=== PATIENT | female | born 1975 | race Caucasian/White ===

== ENCOUNTER 2023-12-12 06:37 | Outpatient (OUT) | payer BC, SELFPAY ==
--- NOTE | 2023-12-12 06:42 | MR_ITS ---
[address] [address] Patient Name: OSEAS DE LEON MRN: [id number] date: 1975 Sex: F Assigned Patient Location: MRI Current Patient Location: MRI Accession/Order Number: [id number] Exam Date: 12/12/2023 06:55 Report Date: 12/12/2023 07:46 At the request of: KORINA ROBLES Procedure: MR cervical spine wo con EXAMINATION: MR cervical spine wo con HISTORY: Cervical Dystonia G24.3, Cervical Radiculopathy Radiculopath COMPARISON: No relevant comparison available. TECHNIQUE: A variety of imaging planes and parameters were utilized for visualization of suspected pathology. FINDINGS: CRANIOCERVICAL AREA: Normal foramen magnum with no Chiari malformation. PARASPINAL AREA: Normal with no visible mass. BONES: Normal alignment with no acute fracture or spondylolisthesis. Signal dropout C5-C6 from anterior metallic fusion hardware CORD: There is atrophy of the cervical cord at C5-C6 with 0.8 cm area of decreased T1 increased T2 and STIR signal within the central cord. CERVICAL DISC LEVELS: C2-C3: Early degenerative disc disease is present without focal protrusion or neural impingement. C3-C4: Moderate disc space narrowing and disc desiccation. Moderate diffuse disc/osteophyte complex. Bilateral facet osteoarthropathy. No central canal stenosis. Mild bilateral foraminal stenosis C4-C5: Moderate disc space narrowing and disc desiccation. Mild diffuse disc/osteophyte complex and facet osteoarthropathy. Narrowing the central canal to 7.2 mm in anterior posterior dimension. No new right, mild left foraminal stenosis C5-C6: Anterior fusion with no disc bulge or herniation. No central or foraminal stenosis. Atrophy of the cord with central signal abnormality C6-C7: Disc collapse. Moderate diffuse disc/osteophyte complex narrowing the central canal to 7.8 mm in AP dimension. Moderate bilateral foraminal stenosis C7-T1:. Moderate disc space narrowing and disc desiccation. Moderate diffuse disc/osteophyte complex. No central canal stenosis or left foraminal stenosis. 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 Electronically authenticated by: WESLY COBIAN Date: 12/12/2023 07:46
== END 2023-12-12 06:38 | disposition home or self-care (01) ==
LOC: MRI 06:37
PROVIDERS: PCP Family Medicine; Visit Provider Psychiatry & Neurology Neurology
DX: G24.3 Spasmodic torticollis (principal); M54.12 Radiculopathy, cervical region
CPT/HCPCS: 72141

== ENCOUNTER 2024-09-30 10:58 | Outpatient (OUT) | payer BC, MEDICARE, SELFPAY ==
--- NOTE | 2024-09-30 11:00 | MM_ITS ---
Patient Name: OSEAS DE LEON MR#: [id number] : 1975 Exam Date: 09/30/2024 Ordering Doctor: DR MARCELLUS CASTILLO RADIOLOGY REPORT PROCEDURE: MM TOMOSYNTHESIS SCREENING BI COMPARISON: MG MAMM SCREEN 3D SCOTT CAD, 10/30/2022. MG MAMM SCREEN 3D SCOTT CAD, 10/29/2021. MG MAMM SCREEN SCOTT W CAD, 10/29/2019. MG MAMM SCOTT SCRN W CAD DIG, 06/22/2015. INDICATIONS: Screening Calculator Name NCI Breast Cancer Risk Assessment Tool 5 Year Breast Cancer Risk 0.70% Lifetime Breast Cancer Risk 6.60% Personal Breast Cancer No Personal Ovarian Cancer No Treatments thyroidectomy Family Cancers None LOCATION: [facility] BREAST COMPOSITION: The breasts are heterogeneously dense,which may obscure small masses. FINDINGS: DIAGNOSTIC CATEGORY 1--NEGATIVE. RIGHT BREAST: No significant suspicious finding. No significant change has occurred. LEFT BREAST: No significant suspicious finding. No significant change has occurred. RECOMMENDATIONS: ROUTINE MAMMOGRAM AND CLINICAL EVALUATION IN 12 MONTHS. PLEASE NOTE: A NORMAL MAMMOGRAM DOES NOT EXCLUDE THE POSSIBILITY OF BREAST CANCER. A CLINICALLY SUSPICIOUS PALPABLE LUMP SHOULD BE BIOPSIED. Dictated by: Phani Hernandez M.D. on 10/01/2024 at 09:30 Approved by: Phani Hernandez M.D. on 10/01/2024 at 09:33
--- OUTSIDE RECORDS SUMMARY | 2024-09-30 11:19 | XMS_ITS | CCD ---
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 Name Role Phone Gurmeet Sahu MD Primary Care Provider [phone] Ashkan Brown Unavailable Mo Trevino Unavailable Gurmeet Sahu Unavailable Gurmeet Sahu MD Primary Care Provider [phone] JONATHAN, DR MARCELLUS Katz Admitting Unavailable JONATHAN, DR MARCELLUS Katz Attending Unavailable LUIS ALBERTO, DR CARREON Primary Care Unavailable BLAZE, DR MARKUS Wheeler Consulting Unavailable JONATHAN, DR MARCELLUS Katz Consulting Unavailable MD Gurmeet Sahu Primary Care Provider MD Ashkan Brown Attending Provider Naya See Unavailable MD Naya See Attending Provider Gurmeet Sahu MD Primary Care Provider MD Gurmeet Shau Primary Care Provider MD Ashkan Brown Attending Provider [phone] Gurmeet Sahu MD Primary Care Provider [phone] MD Gurmeet Sahu Primary Care Provider MD Ashkan Brown Attending Provider MD Gurmeet Sahu Primary Care Provider [phone] GARIMA Vance Attending Provider Nyasia Vance Unavailable MD Gurmeet Sahu Primary Care Provider GARIMA Vance Attending Provider IRISH Farooq Attending Provider Yenifer Farooq Admitting Unavailab Yenifer Aggarwal Attending Unavailab le Gurmeet Sahu Primary Care Unavailable Naya See Admitting Unavailable Naya See R Attending Unavailable Gurmeet Sahu Primary Care Unavailable Ashkan Brown Admitting Unavailable Ashkan Brown Attending Unavailable Gurmeet Sahu Primary Care Unavailable Ashkan Brown Admitting Unavailable Ashkan Brown Attending Unavailable Gurmeet Sahu Primary Care Unavailable Ashkan Brown Attending Unavailable Gurmeet Sahu Primary Care Unavailable Ashkan Brown Admitting Unavailable Gurmeet Sahu Primary Care Unavailable Nyasia Vance Admitting Unavailable Nyasia Vance Attending Unavailable Gurmeet Sahu MD Primary Care Provider GURMEET SAHU Referring Unavailable GURMEET SAHU Primary Care Unavailable BABAK KNIGHT JR Attending Unavailabl BABAK Nogueira JR Referring Unavailabl GURMEET Jacobsen Primary Care Unavailable BABAK KNIGHT JR Admitting Unavailabl BABAK Nogueira JR Attending Unavailabl e GURMEET SAHU Primary Care Unavailable WESLY MITCHELL Attending Unavailable GURMEET SAHU Primary Care Unavailable GURMEET SAHU Primary Care Unavailab GURMEET Buitrago Primary Care Unavailab Kristi Albert Attending Unavailable MARCELLUS CID Referring Unavailable GURMEET SAHU Primary Care Unavailable Gurmeet Sahu MD Unavailable [phone] Gurmeet Sahu MD Primary Care Provider [phone] Marcellus Cid MD Unavailable Milton Garcia DO Unavailable [phone] Yenifer Farooq NP Unavailable Gurmeet Sahu MD Unavailable GURMEET SAHU Attending Unavailable KORINA RIBEIRO Attending Unavailable GURMEET SAHU Attending Unavailable YENIFER FAROOQ Attending Unavailab YENIFER Aggarwal Attending Unavailab le GURMEET SAHU Attending Unavailable GURMEET SAHU Attending Unavailable YENIFER FAROOQ Attending Unavailab Gaviota JR., BABAK Saldana Attending Unavaila ble GURMEET SAHU Attending Unavailable JOURDAN HERR Attending Unavailable YAA SOLIZ Attending Unavailable HERR, JOURDAN Duvall Referring Unavailable LANI KWON Attending Unavailable HERR, JOURDAN Duvall Referring Unavailable BRINK, ROXANNE Attending Unavailable HERR, JOURDAN Duvall Referring Unavailable BRINK, ROXANNE Attending Unavailable HERR, JOURDAN Duvall Referring Unavailable KELBLEYLANI Attending Unavailable HERR, JOURDAN Duvall Referring Unavailable BRINK, ROXANNE Attending Unavailable HERR, JOURDAN Duvall Referring Unavailable BRINK, ROXANNE Attending Unavailable HERR, JOURDAN Duvall Referring Unavailable YENIFER FAROOQ Attending Unavailab Gaviota JR., BABAK Saldana Attending Unavaila andriy KNIGHT JR., BABAK Saldana Referring Unavaila ble JOURDAN HERR Attending Unavailable MAGDALENE LESTER Attending Unavailable GURMEET SAHU Attending Unavailable MAIA, JOURDAN Duvall Attending Unavailable GURMEET SAHU Attending Unavailable ALICIA CISNEROS Attending Unavailable HERR, JOURDAN Duvall Referring Unavailable ALICIA CISNEROS Attending Unavailable HERR, JOURDAN Duvall Referring Unavailable HERR, JOURDAN Duvall Attending Unavailable YENIFER FAROOQ Attending Unavailab le JOURDAN HERR Attending Unavailable ALICIA CISNEROS Attending Unavailable HERR, JOURDAN Duvall Referring Unavailable ALICIA CISNEROS Attending Unavailable HERR, JOURDAN Duvall Referring Unavailable CISNEROSALICAI Attending Unavailable HERR, JOURDAN Duvall Referring Unavailable JUN RIVERA Attending Unavailable HERR, JOURDAN Duvall Referring Unavailable JUN RIVERA Attending Unavailable HERR, JOURDAN Duvall Referring Unavailable ALICIA CISNEROS Attending Unavailable HERR, JOURDAN Duvall Referring Unavailable LANI KWON Attending Unavailable HERR, JOURDAN Duvall Referring Unavailable MILTON GARCIA Attending Unavailable MILTON GARCIA Referring Unavailable GURMEET SAHU Attending Unavailable JOURDAN HERR Attending Unavailable Gurmeet Sahu MD Unavailable Gurmeet Sahu MD Primary Care Provider Gurmeet Sahu MD Unavailable [phone] Medications Current Medications Medication Drug Class(es) Dates Sig (Normalized) Sig (Original) acetaminophen 325 mg / butalbital 50 mg / caffeine 40 mg oral tablet (20 sources) Barbiturate, Central Nervous System Stimulant, Methylxanthine Start: 01-04-2019 take 1 tablet by mouth every four hours as needed for headache butalbital-acetam inophen-caffeine (FIORICET, ESGIC) 50-325-40 MG per tablet Indications: Tension-type headache, not intractable, unspecified chronicity pattern Take 1 tablet by mouth every 4 hours as needed for Headaches 50 tablet 5 01/04/2019 Active Butalbital-APAP- Caffeine 50-300-40 MG TAKE ONE CAPSULE BY MOUTH EVERY 4 HOURS NEEDED FOR 90 DAYS Oral for 23 Active acetaminophen 325 mg / oxyCODONE hydrochloride 5 mg oral tablet (1 source) Opioid Agonist Start: 02-22-2019 oxyCODONE-acetaminophen (PERCOCET) 5-325 MG per tablet amitriptyline hydrochloride 25 mg oral tablet (1 source) Tricyclic Antidepressant take 1 tablet by mouth once daily amitriptyline (ELAVIL) 25 MG tablet Take 25 mg by mouth nightly 0 Active Ascorbic Acid (2 sources) Vitamin C End: 05-15-2022 ascorbic acid (VITAMIN C ORAL) Take by mouth. 0 05/15/2022 Discontinued ascorbic acid (V ITAMIN C ORAL) Take by mouth. 0 Active Comment on above: Take by mouth. baclofen 10 mg oral tablet (20 sources) gamma-Aminobutyric Acid-ergic Agonist Start: 015 baclofen (LIORESAL) 10 MG tablet 0 03/23/2015 Active Comment on above: Take 10 mg by mouth as needed. benzonatate 100 mg oral capsule (15 sources) Non-narcotic Antitussive take 1 capsule by mouth three times daily as needed for cough benzonatate (Tessalon) 100 MG capsule Take 100 mg by mouth 3 (three) times a day as needed for cough. Active biotin 10 mg oral tablet (6 sources) take 1 tablet by mouth every twenty-four hours Biotin 10 MG 1 tablet Orally Once a day Active Cannabinoids (medical cannabis) (15 sources) Cannabinoids (me dical cannabis) Take 1 each by mouth Active cyclobenzaprine hydrochloride 5 mg oral tablet (1 source) Muscle Relaxant Start: 019 cyclobenzaprine (FLEXERIL) 5 MG tablet esomeprazole 20 mg delayed release oral capsule (18 sources) Proton Pump Inhibitor Start: 024 Esomeprazole Magnesium Active 20 MG PO March 02, 2024 12:00am Start: 06-17-2023 End: 05-31-2025 take 1 capsule by mouth before mealtime esomeprazole (NexIUM) [address] capsule Indications: 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 Take before meals. Do not open capsule.. 90 capsule 3 05/31/2024 05/31/2025 Active ferrous sulfate 325 mg oral tablet (1 source) take 1 tablet by mouth once daily at breakfast ferrous sulfate 325 (65 Fe) MG tablet Take 325 mg by mouth daily (with breakfast) 0 Active lactulose 667 mg/ml oral solution (2 sources) Osmotic Laxative Start: 04-12-20 End: 05-15-20 lactulose (DUPHALAC, CONSTULOSE) 10 gram/15 mL solution levothyroxine sodium 0.05 mg oral tablet (20 sources) l-Thyroxine Start: 09-09-20 End: 12-08-19 take 0.5 tablet by mouth in the morning levothyroxine (Synthroid) 50 MCG tablet Indications: Postsurgical hypothyroidism (CMS/HCC) Take 0.5 tablets (25 mcg) by mouth in the morning and 0.5 tablets (25 mcg) in the evening. Take before meals. 90 tablet 09/09/2024 12/08/2024 Active Start: 06-17-2022 SYNTHROID 75 M CG tablet Start: 04-12-2020 End: 05-15-2023 SYNTHROID 75 mcg tablet 1/2 tab daily 0 04/12/2020 05/15/2023 Discontinued take 0.5 tablet by m outh once daily in the morning Synthroid 75 MCG 1/2 tablet in the morning on an empty stomach Oral Once a day for 90 Active Comment on above: 1/2 tab daily liothyronine sodium 0.005 mg oral tablet (18 sources) l-Triiodothyronine Start: 09-09-2024 liothyronine (Cytomel) 5 MCG tablet Indications: Euthyroid sick syndrome Take 1.5 tablet in AM and 1.5 tablet in PM on an empty stomach. RADHA; Sigma or [employer] brands only 270 tablet 09/09/2024 Active Start: 03-03-2024 End: 09-09-2024 liothyronine (Cytomel) 5 MCG tablet Indications: Euthyroid sick syndrome Take 1 tablet in AM and 1 tablet in PM on an empty stomach. RADHA; Sigma or [employer] brands only 60 tablet 09/02/2024 09/09/2024 Discontinued (Reorder) losartan potassium 50 mg oral tablet (20 sources) Angiotensin 2 Receptor Emily Start: 04-26-2021 losartan (COZAAR) 50 mg tablet once daily. 0 04/26/2021 Active Comment on above: once daily. methocarbamol 750 mg oral tablet (15 sources) Muscle Relaxant Start: 06-18-2022 take 1 tablet by mouth four times daily as needed methocarbamol (ROBAXIN) 750 MG tablet TAKE 1 TABLET BY MOUTH FOUR TIMES A DAY NEEDED 0 06/18/2022 Active take 1 tablet by morgan th every four hours Methocarbamol 750 MG 1 tablet Orally loc ry 4 hrs Not-Taking/PRN naproxen 375 mg oral tablet (20 sources) Nonsteroidal Anti-inflammatory Drug Start: 05-25-2024 End: 11-21-2024 take 1 tablet by mouth in the morning naproxen (Naprosyn) 375 MG tablet Indications: Chronic pain syndrome Take 1 tablet (375 mg) by mouth in the morning and 1 tablet (375 mg) in the evening. Take with meals. 180 tablet 1 05/25/2024 11/21/2024 Active Start: 03-02-2024 take 375 mg by mouth twice alysa ly Naproxen Active 375 MG PO Twice daily March 02, 2024 12:00am Start: 08-07-2016 naproxen (NAPR OSYN) 375 MG tablet 2 times daily (with meals) 0 08/07/2016 Active NAPROXEN SODIUM (ALEVE ORAL) Take by mouth as needed. 0 Active Comment on above: Take by mouth as nee ded. omeprazole 20 mg delayed release oral capsule (20 sources) Proton Pump Inhibitor take 1 capsule by mouth once daily omeprazole (PRILOSEC) 20 mg capsule Take 20 mg by mouth once daily. 0 Active Comment on above: Take 20 mg by mouth once daily. 12 hr orphenadrine citrate 100 mg extended release oral tablet (20 sources) Muscle Relaxant Start: take 100 mg by mouth every twelve hours Orphenadrine Citrate Active 100 MG PO Every 12 hours March 02, 2024 12:00am Start: 12-17-2022 End: 11-21-2024 take 1 tablet by mouth twice daily as needed for muscle spasms orphenadrine (Norflex) 100 MG 12 hr tablet Indications: Chronic pain syndrome Take 1 tablet (100 mg) by mouth 2 (two) times a day as needed for muscle spasms 180 tablet 1 05/25/2024 11/21/2024 Active phentermine hydrochloride 37.5 mg oral tablet (15 sources) Sympathomimetic Amine Anorectic Start: 03-02-2024 take 18.75 mg by mouth once daily in the morning Phentermine Active 18.75 MG PO Every morning March 02, 2024 12:00am Start: 07-17-2022 End: 08-16-2022 take 1 tablet by mouth once daily before breakfast phentermine (ADIPEX-P) 37.5 MG tablet Indications: Obesity (BMI 35.0-39.9 without comorbidity) Take 1 tablet by mouth every morning (before breakfast) for 30 days. 30 tablet 0 07/17/2022 08/16/2022 Active Start: 05-10-2021 End: 06-09-2021 take 1 tablet by mouth once daily before breakfast phentermine (ADIPEX-P) 37.5 MG tablet Indications: Obesity, Class III, BMI 40-49.9 (morbid obesity) (HCC) Take 1 tablet by mouth every morning (before breakfast) for 30 days. 30 tablet 0 05/10/2021 06/09/2021 Active pregabalin 150 mg oral capsu le (20 sources) Start: 04-16-2015 LYRICA 150 MG CAPS 2 times daily. 2 tabs. 0 04/16/2015 Active take 1 capsule by mo ut every twelve hours Lyrica 50 MG 1 capsule Orally Twice a day Not-Taking/PRN End: 05-15-2022 take 1 capsule by mouth twice daily pregabalin (LYRICA) 150 mg capsule Indications: History of thyroid cancer Take 150 mg by mouth twice daily. 0 05/15/2022 Discontinued take 1 capsule by mo uth every twelve hours Pregabalin 100 MG 1 capsule Orally Twice a day for 90 Active take 1 capsule by mo uth every twelve hours Pregabalin 200 MG 1 capsule Orally Twice a day for 90 Active Comment on above: Take 150 mg by mouth twice daily. primidone 50 mg oral tablet (20 sources) Anti-epileptic Agent Start: 07-29-2024 End: 07-29-2025 take 1 tablet by mouth at bedtime primidone (Mysoline) 50 MG tablet Indications: Myoclonus Take 1 tablet (50 mg) by mouth at bedtime 90 tablet 3 07/29/2024 07/29/2025 Active Start: 03-02-2024 take 25 mg by mouth once daily at bedtime Primidone Active 25 MG PO Daily at bedtime March 02, 2024 12:00am primidone (MYSOL INE) 50 mg tablet Take 12.5 mg by mouth. 0 Active take 1 tablet by morgan th every twenty-four hours Primidone 50 MG 1 tablet Orally Once a day Active 24 hr propranolol hydrochloride 60 mg extended release oral capsule (16 sources) beta-Adrenergic Emily Start: 08-05-2024 End: 11-03-2024 take 1 capsule by mouth every twenty-four hours at bedtime propranolol LA (Inderal LA) 60 MG 24 hr capsule Indications: Hypertension, unspecified type (CMS/HCC) , Intractable chronic migraine without aura and without status migrainosus (CMS/HCC) TAKE 1 CAPSULE BY MOUTH AT BEDTIME. DO NOT CRUSH, CHEW, OR SPLIT. 90 capsule 1 08/30/2024 Active pseudoephedrine hydrochloride 30 mg oral tablet (15 sources) alpha-Adrenergic Agonist take 1 tablet by mouth every six hours pseudoephedrine (SudoGest) 30 MG tablet Take 30 mg by mouth every 6 (six) hours. Active rimegepant 75 mg disintegrating oral tablet (17 sources) Start: 01-28-2024 take 1 tablet by mouth every twenty-four hours as needed Nurtec 75 MG tablet dispersible Take 75 mg by mouth Daily as needed (Migraine) 01/28/2024 Active temazepam 15 mg oral capsule (16 sources) Benzodiazepine Start: 07-29-2024 End: 10-27-2024 temazepam (Restoril) 15 MG capsule Indications: Insomnia due to medical condition Take 1 capsule (15 mg) by mouth as needed at bedtime for sleep 30 capsule 2 07/29/2024 10/27/2024 Active Start: 04-28-2024 End: 07-27-2024 temazepam (RESTORIL) 15 mg T dwain 15 mg by mouth. 0 04/28/2024 07/27/2024 Active Thyroid (Pork) (1 source) Start: 03-02-2024 Thyroid (Pork) Active 15 MG PO March 02, 2024 12:00am tiZANidine 4 mg oral tablet (16 sources) Central alpha-2 Adrenergic Agonist Start: 07-29-2024 End: 07-29-2025 take 0.5 tablet by mouth in the morning, then take 1 tablet by mouth at bedtime tiZANidine (Zanaflex) 4 MG tablet Indications: Intractable chronic migraine without aura and without status migrainosus (CMS/HCC) , Cervical paraspinal muscle spasm Take 0.5 tablets (2 mg) by mouth in the morning and at noon AND 1 tablet (4 mg) at bedtime. 180 tablet 3 07/29/2024 07/29/2025 Active Start: 03-02-2024 take 8 mg by mouth o nce daily at bedtime Tizanidine Active 8 MG PO Daily at bedtime March 02, 2024 12:00am topiramate 25 mg oral tablet (17 sources) Start: 07-29-2024 End: 07-29-2025 take 2 tablets by mouth at bedtime topiramate (Topamax) 25 MG tablet Indications: Intractable chronic migraine without aura and without status migrainosus (CMS/HCC) Take 2 tablets (50 mg) by mouth at bedtime 180 tablet 3 07/29/2024 07/29/2025 Active Start: 03-02-2024 take 50 mg by mouth once daily at bedtime Topiramate Active 50 MG PO Daily at bedtime March 02, 2024 12:00am topiramate (TOPA MAX) 25 mg capsule Take 25 mg by mouth. 0 Active traMADol hydrochloride 50 mg oral tablet (15 sources) Opioid Agonist Start: 03-03-2024 take 1 tablet by mouth once traMADol (Ultram) 50 MG tablet TAKE 1 TABLET (50 MG) BY MOUTH EVERY 12 (TWELVE) HOURS IF NEEDED FOR SEVERE PAIN FOR UP TO 14 DAYS 03/03/2024 Active Completed/Discontinued Medications Medication Drug Class(es) Dates Sig (Normalized) Sig (Original) thyroid (chcf) 30 mg oral tablet (20 sources) Start: 05-31-2024 End: 11-27-2024 take 1 tablet by mouth in the morning thyroid (Majestic Thyroid) 30 MG tablet Indications: Euthyroid sick syndrome , Postsurgical hypothyroidism (CMS/HCC) Take 1 tablet (30 mg) by mouth in the morning and 1 tablet (30 mg) in the evening. Take before meals. 180 tablet 1 05/31/2024 09/09/2024 Discontinued (Dose adjustment) Start: 04-12-2019 take 2 tablets by mo uth twice daily, then take 3 tablets by mouth once in the morning, then take 2 tablets by mouth once at bedtime ARMOUR THYROID 15 mg tablet Take 30 mg by mouth two times a day. 45mg q a.m. and 30mg q hs 0 04/12/2019 Active Start: 04-12-2019 ARMOUR THYROID 15 mg tablet Take 45 mg by mouth as directed. 45mg q a.m. and 30mg q hs 0 04/12/2019 Active Start: 04-28-2018 ARMOUR THYROID 90 MG tablet Comment on above: Take 45 mg by mouth twice daily. Take 45 mg by mouth as directed. 45mg q a.m. and 30mg q hs triamcinolone acetonide 40 mg/ml injectable suspension (9 sources) Corticosteroid Start: 09-03-2023 Kenalog-40 Oct, 40 mg Problems Active Problems Problem Classification Problem Date Documented Date Episodic/Chronic Cancer of thyroid (6 sources) Malignant tumor of thyroid gland; Translations: [Malignant neoplasm of thyroid gland] Onset: 08-16-2014 08-16-2014 Chronic Complications of surgical procedures or medical care (17 sources) Postoperative hypothyroidism; Translations: [Postprocedural hypothyroidism] Onset: 06-03-2023 06-03-2023 Chronic Esophageal disorders (15 sources) Laryngopharyngeal reflux; Translations: [Gastro-esophageal reflux disease without esophagitis] Onset: 06-03-2023 06-03-2023 Chronic Essential hypertension (17 sources) Essential (primary) hypertension; Translations: [Essential hypertension] Onset: 06-03-2023 06-03-2023 Chronic Headache; including migraine (16 sources) Migraine; Translations: [Migraine, unspecified, not intractable, without status migrainosus] Onset: 06-03-2023 10-06-2023 Chronic Malaise and fatigue (17 sources) Fatigue; Translations: [Chronic fatigue, unspecified] Onset: 06-03-2023 06-03-2023 Chronic Osteoarthritis (20 sources) Localized, primary osteoarthritis of the pelvic region and thigh; Translations: [Unilateral primary osteoarthritis, right hip] Onset: 06-03-2023 Chronic Other connective tissue disease (20 sources) Artificial knee joint present; Translations: [Presence of right artificial knee joint] Onset: 06-03-2023 06-03-2023 Chronic Other connective tissue disease (20 sources) Trochanteric bursitis of left hip; Translations: [Trochanteric bursitis, left hip] Episodic Other connective tissue disease (20 sources) Trochanteric bursitis; Translations: [Trochanteric bursitis, right hip] Episodic Other connective tissue disease (6 sources) Trochanteric bursitis, right hip Onset: 10-30-2021 Resolved: 03-11-2022 Episodic Other connective tissue disease (4 sources) Trochanteric bursitis of right hip; Translations: [Trochanteric bursitis, right hip] Episodic Other connective tissue disease (1 source) Arthrodesis status; Translations: [Arthrodesis status] 03-02-2024 Episodic Other connective tissue disease (1 source) Other muscle spasm; Translations: [Other muscle spasm] Onset: 02-20-2024 Episodic Other connective tissue disease (4 sources) Bicipital tendinitis, right shoulder; Translations: [Bicipital tenosynovitis] 08-25-2024 Episodic Other hereditary and degenerative nervous system conditions (16 sources) Myoclonus; Translations: [Myoclonus] Onset: 08-27-2023 08-27-2023 Chronic Other hereditary and degenerative nervous system conditions (1 source) Myoclonic dystonia; 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 Other hereditary and degenerative nervous system conditions (1 source) Other dystonia Chronic Other hereditary and degenerative nervous system conditions (1 source) Myoclonus Chronic Other nervous system disorders (20 sources) Chronic pain; Translations: [Other chronic pain] Chronic Other nervous system disorders (20 sources) Cervical myelopathy; Translations: [Disease of spinal cord, unspecified] Onset: 05-11-2024 03-02-2024 Chronic Other nervous system disorders (15 sources) Other chronic pain; Translations: [Other chronic pain] Onset: 11-06-2021 Resolved: 06-13-2022 Chronic Other nervous system disorders (3 sources) Disease of spinal cord, unspecified; Translations: [Cervical spondylosis with myelopathy] Onset: 10-30-2021 Resolved: 10-30-2021 Chronic Other nervous system disorders (13 sources) Lesion of ulnar nerve, right upper limb; Translations: [Cubital tunnel syndrome on right] Chronic Other nervous system disorders (1 source) Other chronic pain; Translations: [Other chronic pain] Onset: 08-06-2023 Chronic Other nervous system disorders (15 sources) Chronic pain syndrome; Translations: [Chronic pain syndrome] Onset: 06-03-2023 06-03-2023 Chronic Other nervous system disorders (15 sources) Neuropathy of upper limb; Translations: [Unspecified mononeuropathy of unspecified upper limb] Onset: 06-03-2023 06-03-2023 Chronic Other nervous system disorders (15 sources) Left leg peripheral neuropathy; Translations: [Unspecified mononeuropathy of left lower limb] Onset: 06-03-2023 06-03-2023 Chronic Other nervous system disorders (7 sources) Abnormal involuntary movement; Translations: [Tremor, unspecified] Episodic Other nervous system disorders (2 sources) Tremor, unspecified Episodic Other non-traumatic joint disorders (3 sources) Pain in right elbow Episodic Other non-traumatic joint disorders (12 sources) Pain in right hip joint; Translations: [Pain in right hip] Episodic Other non-traumatic joint disorders (2 sources) Pain in right hip Episodic Other non-traumatic joint disorders (8 sources) Pain in right shoulder; Translations: [Pain in joint, shoulder region] Onset: 05-18-2024 Episodic Other non-traumatic joint disorders (2 sources) Pain in left shoulder; Translations: [Pain in joint, shoulder region] Episodic Other non-traumatic joint disorders (1 source) Pain in unspecified shoulder Episodic Other nutritional; endocrine; and metabolic disorders (17 sources) Obesity caused by energy imbalance; Translations: [Other obesity due to excess calories] Onset: 06-03-2023 06-03-2023 Chronic Other upper respiratory disease (1 source) Paralysis of vocal cords and larynx, bilateral Onset: 10-30-2021 Resolved: 10-30-2021 Chronic Other upper respiratory disease (15 sources) Complete bilateral paralysis of vocal cords; Translations: [Paralysis of vocal cords and larynx, bilateral] Onset: 07-11-2023 07-11-2023 Chronic Other upper respiratory infections (15 sources) Recurrent sinusitis; Translations: [Chronic sinusitis, unspecified] Onset: 06-03-2023 06-03-2023 Chronic Residual codes; unclassified (1 source) Obstructive sleep apnea (adult) (pediatric); Translations: [Obstructive sleep apnea (adult) (pediatric)] Onset: 05-11-2024 Chronic Residual codes; unclassified (15 sources) Dependence on enabling machine or device; Translations: [Dependence on other enabling machines and devices] Onset: 06-03-2023 06-03-2023 Chronic Residual codes; unclassified (15 sources) Obstructive sleep apnea syndrome; Translations: [Obstructive sleep apnea (adult) (pediatric)] Onset: 06-03-2023 06-03-2023 Chronic Residual codes; unclassified (15 sources) Insomnia co-occurrent and due to medical condition; Translations: [Insomnia due to medical condition] Onset: 04-28-2024 04-28-2024 Chronic Residual codes; unclassified (1 source) Other specified personal risk factors, not elsewhere classified; Translations: [Other specified personal risk factors, not elsewhere classified] Onset: 07-21-2024 Episodic Residual codes; unclassified (5 sources) History of arthroscopic procedure on shoulder; Translations: [Other specified postprocedural states] 08-25-2024 Episodic Spondylosis; intervertebral disc disorders; other back problems (20 sources) Degeneration of lumbar intervertebral disc; Translations: [Other intervertebral disc degeneration, lumbar region] Onset: 10-30-2021 Resolved: 06-13-2022 Chronic Thyroid disorders (4 sources) Central hypothyroidism; Translations: [Other specified hypothyroidism] Onset: 09-21-2024 09-21-2024 Chronic Thyroid disorders (17 sources) Sick-euthyroid syndrome; Translations: [Sick-euthyroid syndrome] Onset: 06-03-2023 06-03-2023 Episodic Unclassified (1 source) Unilateral primary osteoarthritis, right hip; Translations: [Unilateral primary osteoarthritis, right hip] Onset: 10-01-2023 Unclassified (1 source) Pain in right elbow; Translations: [Pain in right elbow] Onset: 03-18-2023 Unclassified (1 source) right shoulder internal derangement Onset: 05-18-2024 Past or Other Problems Problem Classification Problem Date Documented Da te Episodic/Chronic Cancer of thyroid (20 sources) History of malignant neoplasm of thyroid; Translations: [Personal history of malignant neoplasm of thyroid] Onset: 11-30-2014 Episodic Complications of surgical procedures or medical care (20 sources) Difficult intubation; Translations: [Failed or difficult intubation, initial encounter] Onset: 06-03-2023 Resolved: 12-01-2023 06-03-2023 Episodic Mood disorders (15 sources) Mood disorders Onset: 01-27-2024 01-27-2024 Other aftercare (15 sources) Polypharmacy ; Translations: [Other correction (current) drug therapy] Onset: 04-26-2021 06-16-2023 Episodic Other circulatory disease (15 sources) Orthostatic hypotension; Translations: [Orthostatic hypotension] Onset: 06-03-2023 06-03-2023 Episodic Other connective tissue disease (19 sources) History of total knee arthroplasty; Translations: [Presence of left artificial knee joint] Onset: 06-03-2023 Resolved: 02-06-2024 02-06-2024 Chronic Other connective tissue disease (3 sources) Trochanteric bursitis, left hip Onset: 11-06-2021 Resolved: 03-11-2022 Episodic Other connective tissue disease (16 sources) History of cervical spine fusion; Translations: [Arthrodesis status] Onset: 05-11-2024 03-02-2024 Episodic Other connective tissue disease (15 sources) Lateral epicondylitis of right humerus; Translations: [Lateral epicondylitis, right elbow] Onset: 06-03-2023 06-03-2023 Episodic Other connective tissue disease (15 sources) Medial epicondylitis of right humerus; Translations: [Medial epicondylitis, right elbow] Onset: 06-03-2023 06-03-2023 Episodic Other connective tissue disease (15 sources) Spasm of cervical paraspinous muscle; Translations: [Other muscle spasm] Onset: 01-23-2024 01-23-2024 Episodic Other gastrointestinal disorders (15 sources) Constipation; Translations: [Constipation, unspecified] Onset: 06-03-2023 06-03-2023 Episodic Other lower respiratory disease (15 sources) Dyspnea; Translations: [Dyspnea, unspecified] Onset: 06-03-2023 Resolved: 12-01-2023 12-01-2023 Episodic Other nervous system disorders (15 sources) Numbness; Translations: [Anesthesia of skin] Onset: 01-23-2024 Resolved: 01-27-2024 01-27-2024 Episodic Other non-traumatic joint disorders (15 sources) Chronic pain of right upper limb; Translations: [Pain in right shoulder] Onset: 01-23-2024 01-23-2024 Episodic Other screening for suspected conditions (not mental disorders or infectious disease) (19 sources) Encounter for screening mammogram for malignant neoplasm of breast; Translations: [Patient encounter status] Onset: 10-30-2022 Resolved: 12-03-2023 Episodic Other upper respiratory disease (15 sources) Vocal cord paralysis; Translations: [Paralysis of vocal cords and larynx, unspecified] Onset: 06-03-2023 Resolved: 12-30-2023 12-30-2023 Chronic Other upper respiratory disease (15 sources) Hoarse; Translations: [Dysphonia] Onset: 06-03-2023 06-03-2023 Episodic Residual codes; unclassified (15 sources) Transient alteration of awareness; Translations: [Transient alteration of awareness] Onset: 08-06-2023 Resolved: 12-01-2023 12-01-2023 Episodic Spondylosis; intervertebral disc disorders; other back problems (20 sources) Cervicalgia; Translations: [Low back pain] Onset: 06-23-2023 Resolved: 01-27-2024 Episodic Unclassified (20 sources) Other low back pain; Translations: [Other low back pain] Unclassified (7 sources) Other low back pain M54.59 Onset: 11-06-2021 Resolved: 06-13-2022 Results Test Name Value Interpretation Reference Range Facility XR Knee - left 1 or 2 Viewso n 09-07-2024 Imaging Result: September 07, 2004 x-rays AP weight-bearing bilateral knees and lateral left knee demonstrate cemented knee replacements bilaterally. There is good position alignment there are no signs of loosening fracture or failure. Impression: Stable appearance of knee replacements Alireza Garcia D.O. [facility] Radiology Study observation (narrative) [facility] HPV DNA High Riskon 08-03-20 24 HPV Interp Normal [facility] Comment on above: Result Comment: This test amplifies and detects DNA of 14 high-risk HPV types associated with cervical cancer and its precursor lesions (HPV types 16,18, 31, 33, 35, 39, 45, 51, 52, 56, 58, 59, 66, and 68). Sensitivity may be affected by specimen collection methods, stage of infection, and the presence of interfering substances. Results should be interpreted in conjunction with other available laboratory and clinical data. A negative high-risk HPV result does not exclude the possibility of future cytologic HSIL or underlying CIN2-3 or cancer. This test is intended for medical purposes only and is not valid for the evaluation of suspected sexual abuse or for other forensic purposes. Performed By: #### [facility] #### [address] [address] Lighting Adviser: To Casarez MD HPV Type 16 Not detected [facility] Comment on above: Performed By: #### [facility] #### [address] [address] Lighting Adviser: To Casarez MD HPV Type 18 Not detected [facility] Comment on above: Performed By: #### [facility] #### [address] [address] Lighting Adviser: To Casarez MD Other High Risk HPV Not detected [facility] Comment on above: Performed By: #### [facility] #### [address] [address] Lighting Adviser: To Casarez MD HPV DNA High Riskon 08-02-20 24 HPV Sample .THIN PREP [facility] Comment on above: Performed By: #### [facility] #### [address] [address] Lighting Adviser: To Casarez MD Source CERVICAL MATERIAL Normal [facility] Comment on above: Performed By: #### [facility] #### [address] [address] Lighting Adviser: To Casarez MD Cytology Reporton 07-21-2024 Cytology report Cyto stain.thin prep Doc (Cvx/Vag) (NOTE) Path Number: [id number] DIAGNOSIS Imaged ThinPrep Pap - Cervical (1 monolayer slide): Specimen Adequacy: Satisfactory for evaluation. -Endocervical/transfor mation zone component is absent. Descriptive Diagnosis: Atypical squamous cells of undetermined significance (ASC-US). Cytotech Screener: LT1 Electronically Signed Out Jesus Tatum. /08/02/2024 Procedure/Addendum HPV Procedure Report Date Ordered: 08/02/2024 Status: Signed Out Date Complete: 08/03/2024 By: System Interface Date Reported: 08/03/2024 Sample: HPV Type 16 Result: Not Detected Ref Range: (Not Detected) Sample: HPV Type 18 Result: Not Detected Ref Range: (Not Detected) Sample: Other High Risk HPV Result: Not Detected Ref Range: (Not Detected) Sample: HPV Interp Result: Ref Range: (Not Detected) This test amplifies and detects DNA of 14 high-risk HPV types associated with cervical cancer and its precursor lesions (HPV types 16,18, 31, 33, 35, 39, 45, 51, 52, 56, 58, 59, 66, and 68). Sensitivity may be affected by specimen collection methods, stage of infection, and the presence of interfering substances. Results should be interpreted in conjunction with other available laboratory and clinical data. A negative high-risk HPV result does not exclude the possibility of future cytologic HSIL or underlying CIN2-3 or cancer. This test is intended for medical purposes only and is not valid for the evaluation of suspected sexual abuse or for other forensic purposes. Performed at [facility] [facility] [address] [place] [id number] ([phone] Source of Specimen: A: Imaged ThinPrep Pap - Cervical (1 monolayer slide) HPV Reflex?............... .......HPV if Abnormal Clinical History Endometrial ablation: 2010 Processing Lab: [address] [phone] Interpretation performed at [address] [phone] This Pap Test has been evaluated with the assistance of the ThinPrep Pap Test Imaging System. The Pap smear is a screening test primarily for squamous epithelial lesions, which is subject to both false negative and false positive results. Your patient should be reminded to consult you immediately if she experiences any suspicious signs or symptoms, regardless of her Pap smear result. GYNECOLOGIC CYTOLOGY REPORT Patient Name: NICHELLE DE LEON. [facility] Rec: [id number] [facility] [employer] [facility]ISTS [facility] [address] [place] [phone] [facility] 07-01-2024 CNOV Office Visit (RADTSA ) NICHELLE DE LEON ([id number]) 1975 F Date Time Provider Department 07/01/24 11:45 AM Kristi LOCKE During your visit today, we recorded the following information about you: Temperature Pulse Respiration Blood pressure 98.5 degrees 82/minute 16/minute 135/87 Weight 73.8 kg Kristi Locke MD 07/09/2024 12:19 PM Signed Radiation Oncology - Follow Up Note PATIENT NAME: Nichelle De Leon PATIENT Diagnosis: Thyroid carcinoma, micropapillary. Prior treatment: Thyroidectomy and elected observation with no I-131 therapy. INTERVAL HISTORY: Doing well. Denies any new problems. No neck pain. No dysphagia. Overall feeling fairly good without significant limitations. Recovering very well from Arthroscopic right shoulder surgery earlier this year. LABORATORY: Latest Reference Range AND Units 05/03/24 09:40 Thyroglobulin, LC-MS/MS 1.3 - 31.8 ng/mL <0.5 (L) (L): Data is abnormally low Latest Reference Range AND Units 04/20/19 09:19 04/11/20 09:33 04/26/21 09:57 04/05/22 10:18 05/06/23 09:37 Thyroglobulin Ab <14.4 IU/mL 15.8 (H) 12.2 9.9 Thyroglobulin 1.6 - 59.9 ng/mL 0.2 (L) <0.2 (L) 0.5 (L) 0.7 (L) Thyroglobulin Ab, Serum <4.0 IU/mL <0.9 Thyroglobulin, Serum 1.6 - 50.0 ng/mL 0.1 (L) ALLERGIES No Known Allergies MEDICATIONS: esomeprazole (NEXIUM) 20 mg capsule Take 20 mg by mouth. liothyronine (CYTOMEL) 5 mcg tablet Take 1 tablet in AM and 1 tablet in PM on an empty stomach. RADHA; Sigma or [employer] brands only primidone (MYSOLINE) 50 mg tablet Take 12.5 mg by mouth. NURTEC ODT 75 mg disintegrating tablet TAKE 75 MG BY MOUTH NEEDED AT BEDTIME (MIGRAINE). temazepam (RESTORIL) 15 mg Take 15 mg by mouth. topiramate (TOPAMAX) 25 mg capsule Take 25 mg by mouth. orphenadrine ER (NORFLEX) 100 mg tablet Take 100 mg by mouth two times a day. losartan (COZAAR) 50 mg tablet once daily. ARMOUR THYROID 15 mg tablet Take 30 mg by mouth two times a day. 45mg q a.m. and 30mg q hs NAPROXEN SODIUM (ALEVE ORAL) Take by mouth as needed. Phentermine HCl 37.5 mg tablet Take 37.5 mg by mouth. omeprazole (PRILOSEC) 20 mg capsule Take 20 mg by mouth once daily. baclofen (LIORESAL) 10 mg tablet Take 10 mg by mouth as needed. REVIEW OF SYSTEMS: GENERAL: Negative for weight loss, fevers, chills, or night sweats. HEENT: Negative for sudden vision or hearing changes. NECK: Negative for masses in the neck. RESPIRATORY: Negative for cough or shortness of breath. CARDIAC: Negative for chest pain, palpitations, murmurs, or syncopal episodes. GI: Negative for nausea, vomiting, diarrhea, constipation, blood per rectum, or melena. : Negative for dysuria, hematuria, urgency, frequency or incontinence. MUSCULOSKELETAL: Negative for limitations in movement, pain, or swelling. NEURO: Negative for dizziness, headache, weakness or numbness. HEMATOLOGIC: Negative for bleeding or easy bruising. SKIN: Negative for rashes or other skin changes. PHYSICAL EXAM: VS: BP 135/87 Pulse 82 Temp 36.9 ?C (98.5 ?F) Resp 16 Wt 73.8 kg (162 lb 11.2 oz) SpO2 99% BMI 32.31 kg/m? KPS: 100 General Appearance: Alert and oriented. No acute distress. Neck: Normal ROM. No palpable cervical or supraclavicular adenopathy. Skin: No rashes noted Lymphatics: No palpable lymphadenopathy. ASSESSMENT AND PLAN: Thyroid carcinoma, micropapillary. Prior treatment: Thyroidectomy and elected observation with no I-131 therapy. Doing well. No clinical evidence of suspicious findings. Thyroglobulin undetectable. Continue routine surveillance. Signed by: Kristi Locke MD cc: Gurmeet Sahu MD [address] [place] [address] Allergies As of Date: 07/01/2024 (No Known Allergies) Date Reviewed: 07/01/2024 Reviewed by: Quoc Brian LPN - Fully Assessed Reason for Visit: Thyroid Cancer [879] Primary Visit Diagnosis:History of thyroid cancer [Z85.850] Order(s):THYROGLOBULIN , SERUM WITH REFLEX TO IA OR LC-MS/MS [SQTHYRORF] Order #: [id number] FUTURE Prescriptions as of 07/09/2024 - esomeprazole (NEXIUM) 20 mg capsule Take 20 mg by mouth. - liothyronine (CYTOMEL) 5 mcg tablet Take 1 tablet in AM and 1 tablet in PM on an empty stomach. RADHA; Blip or Carestream brands only - Phentermine HCl 37.5 mg tablet Take 37.5 mg by mouth. - primidone (MYSOLINE) 50 mg tablet Take 12.5 mg by mouth. - NURTEC ODT 75 mg disintegrating tablet TAKE 75 MG BY MOUTH NEEDED AT BEDTIME (MIGRAINE). - temazepam (RESTORIL) 15 mg Take 15 mg by mouth. - topiramate (TOPAMAX) 25 mg capsule Take 25 mg by mouth. - orphenadrine ER (NORFLEX) 100 mg tablet Take 100 mg by mouth two times a day. - losartan (COZAAR) 50 mg tablet once daily. - ARMOUR THYROID 15 mg tablet Take 30 mg by mouth two times a day. 45mg q a.m. and 30mg q hs (more content not included)... Normal [facility] THYROGLOBULIN BY LC-MS/MS, S MILENA OR PLASMA, FOR THYROGLOBULIN ANTIBODY INTERFERENCEon 05-03-2024 THYROGLOBULIN, LC-MS/MS <0.5 Low 1.3-31.8 [facility] Comment on above: Order Comment: Speci men Type: BLOOD SPECIMEN Ordering Facility: [facility] Address: [address] [place] [address] Result Comment: Results obtained with different test methods or kits cannot be used interchangeably. Thyroglobulin results, regardless of concentration, should not be interpreted as absolute evidence for the presence or absence of papillary or follicular thyroid cancer. Thyroglobulin testing is not recommended for use as a screening procedure to detect the presence of thyroid cancer in the general population. INTERPRETIVE INFORMATION: Thyroglobulin by LC-MS/MS, Serum/Plasma Lower limit of detection for Thyroglobulin by LC-MS/MS is 0.5 ng/mL. This test was developed and its performance characteristics determined by [facility]. It has not been cleared or approved by the US Food and Drug Administration. This test was performed in a CLIA certified laboratory and is intended for clinical purposes. Performed By: [facility] [address] [place] [address] [employer] Extension Educator: Tacho Eason MD, PhD CLIA Number: [id number] Performed By: #### [facility] #### [facility] CLIA [id number] [address] [place] [address] Jojo 04-28-2024 KATIEN Telephone (IRMAA) NICHELLE DE LEON ([id number]) 1975 F Date Time Provider Department 04/28/24 Kristi LOCKE During your visit today, we recorded the following information about you: Quoc Brian LPN 04/28/2024 9:09 AM Signed Please sign pended thyroglobulin order for upcoming follow up. Quoc Brian RN Allergies As of Date: 04/28/2024 (No Known Allergies) Date Reviewed: 05/15/2023 Reviewed by: Loretta Leon MA - Fully Assessed Reason for Visit: Orders [681] Primary Visit Diagnosis:History of thyroid cancer [Z85.850] Order(s):THYROGLOBULIN BY LC-MS/MS, SERUM OR PLASMA, FOR THYROGLOBULIN ANTIBODY INTERFERENCE [SQTGMSMS] Order #: [id number] FUTURE Prescriptions as of 04/28/2024 - losartan (COZAAR) 50 mg tablet once daily. - ARMOUR THYROID 15 mg tablet Take 45 mg by mouth as directed. 45mg q a.m. and 30mg q hs - NAPROXEN SODIUM (ALEVE ORAL) Take by mouth as needed. - omeprazole (PRILOSEC) 20 mg capsule Take 20 mg by mouth once daily. - baclofen (LIORESAL) 10 mg tablet Take 10 mg by mouth as needed. Problem List As Of Date 04/28/2024 Noted Resolved Malignant neoplasm of thyroid gland (HCC) [C73] 08/16/2014 History of thyroid cancer [Z85.850] 11/30/2014 Encounter Status:Closed by QUOC BRIAN on 04/28/24 Normal [facility] MR shoulder RT arthrogram wc onon 02-20-2024 [facility] [place] [address] MRI Report Signed Patient: Nichelle De Leon MR#: [id number] : 1975 Acct:[id number] Age/Sex: 49 / F ADM Date: 02/20/24 Loc: MR Room: Type: [facility] Attending Dr: Yenifer Farooq APRN, MAILER APPRENTICE-C Copies to: Yenifer Farooq APRN,KATIE Ordering Provider: Yenifer Farooq APRN, CNP Date of Service: 02/20/24 MR/MR shoulder RT arthrogram wcon: M54.12, R20.0 G89.29, M62.838 MRI of the right shoulder with intra-articular contrast. Reason for exam: Right shoulder weakness for 3 months. Chronic right shoulder pain. COMPARISON: Right shoulder series 08/06/2023. TECHNIQUE: Multisequence, multiplanar images of the right shoulder were obtained after administration of intra-articular contrast. FINDINGS: Examination is suboptimal due to motion as well as the majority of the intra-articular contrast had extravasated out of the joint space. Degenerative changes are noted involving the AC joint. Mild degenerative changes noted involving the glenohumeral joint. The labrum is suboptimally visualized due to the limitations as described above with heterogeneous signal involving the anterior labrum possibly representing underlying tear. Inferior glenohumeral ligament appears unremarkable. Biceps tendon is difficult to visualize due to the motion. It is not clearly identified. No definite tear is seen involving the supraspinatus or infraspinatus muscles or tendons. Teres minor muscle appears unremarkable. Contrast extravasation is seen along the subscapularis muscle. The visualized portions of the tendon appear grossly intact. MR/MR shoulder RT arthrogram wcon IMPRESSION: Significantly limited examination due to motion as well as extravasation of the given intra-articular contrast from the joint space from the time of injection to MRI scan. There is questionable labral tear involving the anterior labrum. The biceps tendon is not clearly identified on this study throughout as normal course. No definite rotator cuff pathology is seen. Mild degenerative changes of the AC and glenohumeral joints. Impression dictated by: Suleiman Zaman Jr., D.OGt02/20/2024 4:04 PM Dictation Location: [place] [address] Transcribed By: [facility] 02/20/24 1604 Dictated By: Suleiman Zaman Jr, DO 02/20/24 1559 Signed By: 02/20/24 1604 Normal [facility] XR shoulder RT min 2V*on XR shoulder RT min 2V* [facility] [place] [address] Fluoroscopy Report Signed Patient: Nichelle De Leon MR#: [id number] : 1975 Acct:[id number] Age/Sex: 49 / F ADM Date: 02/20/24 Loc: MR Room: Type: [facility] Attending Dr: Yenifer Farooq APRN, MAILER APPRENTICE-C Copies to: Yenifer Farooq APRN,KATIE Ordering Provider: Yenifer Farooq APRN, CNP Date of Service: 02/20/24 FL/FL guided needle placement: M54.12, M25.511 M62.838, G89.29 ([id number]) XR/XR shoulder RT min 2V*: M54.12, M25.511 M62.838, G89.29 Fluoroscopically guided right shoulder arthrogram. Reason for exam: Right shoulder weakness for 3 months. Chronic right shoulder pain. COMPARISON: Shoulder series 08/06/2023. FINDINGS: After questions were answered, informed consent was obtained. The patient was placed supine on the fluoroscopic table in the right shoulder was localized by fluoroscopy. The skin over the right shoulder was prepped in the normal sterile fashion. 1% lidocaine was utilized for local anesthesia. Using fluoroscopic guidance, a 20-gauge spinal needle was advanced into the glenohumeral joint and a combination of 10 mL of saline, 10 mL of Isovue and 0.1 mL of ProHance was then injected without difficulty. Needle was withdrawn and hemostasis was achieved. Postprocedure internal/external rotation views demonstrate no migration of the radiotracer to the subacromial bursa to suggest rotator cuff tear. FL/FL guided needle placement IMPRESSION: Unsuccessful fluoroscopically guided right shoulder arthrogram. Cumulative Air Kerma in mGy: 40.97 mGy Impression dictated by: Suleiman Zaman Jr., D.O.02/20/2024 3:22 PM Dictation Location: [place] [address] Transcribed By: [facility] 02/20/24 1522 Dictated By: Suleiman Zaman Jr, DO 02/20/24 1520 Signed By: 02/20/24 1522 Normal [facility] XR cervical spine w flex/ext on 01-01-2024 XR cervical spine w flex/ext [facility] [address] [place] [id number] XRay Report Signed Patient: Nichelle De Leon MR#: [id number] : 1975 Acct:[id number] Age/Sex: 48 / F ADM Date: 01/01/24 Loc: XD Room: Type: [facility] Attending Dr: Nyasia PAINTING Copies to: GARIMA Stewart Ordering Provider: GARIMA Stewart Date of Service: 01/01/24 XR/XR cervical spine w flex/ext: M54.2 XR cervical spine w flex/ext 01/01/2024 3:43 PM SIGNS AND SYMPTOMS: Right arm pain with numbness, tingling, and weakness. Headaches. PROTOCOLS: Frontal, lateral, oblique, and flexion-extension views of the cervical spine COMPARISON: 06/23/202002/24 and 12/12/2023 FINDINGS: The bones are in anatomic alignment. There is preservation of the vertebral body heights. There is anterior fusion hardware at C5-C6. There is severe disc height loss with endplate osteophyte formation and uncovertebral joint spurring at C6-C7. Mild disc height loss with anterior osteophyte formation is noted at C3-C4 and C4-C5. There is bilateral neural foraminal narrowing at C5-C6 and C6-C7. The atlantoaxial joint is preserved. There is no pathologic movement on flexion or extension. There is no fracture or destructive lesion. XR/XR cervical spine w flex/ext IMPRESSION: Unchanged anterior fusion at C5-C6. Similar degenerative changes are noted, greatest at C6-C7. No fracture, subluxation, or pathologic movement on flexion or extension. Impression dictated by: Wild Bruce M.D.01/01/2024 5:35 PM Dictation Location: [place] [address] Transcribed By: [facility] 01/01/24 1735 Dictated By: Wild Bruce II, MD 01/01/24 173 Signed By: 01/01/24 1735 Normal [facility] XR hip RT min 2V(w/wo pelvis )*on 10-01-2023 XR hip RT min 2V(w/wo pelvis)* [facility] [place] [address] XRay Report Signed Patient: Nichelle De Leon MR#: [id number] : 1975 Acct:[id number] Age/Sex: 48 / F ADM Date: 10/01/23 Loc: SOXD Room: Type: REG CLI Attending Dr: Ashkan Brown MD Copies to: Ashkan Brown MD Ordering Provider: Ashkan Brown MD Date of Service: 10/01/23 XR/XR hip RT min 2V(w/wo pelvis)*: M16.11 AP PELVIS WITH RIGHT HIP - 2 views: CLINICAL HISTORY: Generalized worsening right hip pain. No injury. COMPARISON: 03/12/2023 AP weightbearing view the pelvis and frog-lateral view of the right hip were obtained. There is no evidence of fracture or dislocation. The hip joint spaces are similar. No prominent developing hypertrophy is seen. There is minor SI joint sclerosis. There is also some degenerative change involving the lower imaged lumbar spine. There are no significant soft tissue abnormalities. Moderate colonic stool is visualized within the [id number]-ag-zoaw. XR/XR hip RT min 2V(w/wo pelvis)* IMPRESSION: NO ACUTE BONY FINDINGS. Impression dictated by: Alicia Horvath M.D.10/01/2023 4:24 PM Dictation Location: [place] [address] Transcribed By: [facility] 10/01/23 1624 Dictated By: Alicia Horvath MD 10/01/23 1554 Signed By: 10/01/23 1624 Normal [facility] XR shoulder BI min 2Von 07-25 XR shoulder BI min 2V [facility] [address] [place] [address] XRay Report Signed Patient: Nichelle De Leon MR#: [id number] : 1975 Acct:[id number] Age/Sex: 48 / F ADM Date: 08/06/23 Loc: [facility] Room: Type: REG CLI Attending Dr: Ashkan Brown MD Copies to: Ashkan Brown MD Ordering Provider: Ashkan Brown MD Date of Service: 08/06/23 XR/XR shoulder BI min 2V: Chronic pain BILATERAL SHOULDER - 4 views each CLINICAL HISTORY: And bilateral shoulder pain and weakness, right greater than left. No injury. COMPARISON: None AP, Y , axillary and Grashey views were obtained. There is no acute fracture or dislocation. There is minor hypertrophic degenerative change at the acromioclavicular joints where there is borderline widening, greater on the right. Minor spurring is present at the inferior glenoids There is mild sclerosis at the greater tuberosities. There are no significant soft tissue abnormalities. XR/XR shoulder BI min 2V IMPRESSION: MINOR DEGENERATIVE CHANGES. NO ACUTE BONY FINDINGS. Impression dictated by: Alicia Horvath M.D.08/06/2023 3:06 PM Dictation Location: [place] [address] Transcribed By: [facility] 08/06/23 1506 Dictated By: Alicia Horvath MD 08/06/23 1501 Signed By: 08/06/23 1506 Normal [facility] XR cerv spine AP/LAT/FLX/EXT on 06-23-2023 XR cerv spine AP/LAT/FLX/EXT [facility] [place] [place] [address] XRay Report Signed Patient: Nichelle De Leon MR#: [id number] : 1975 Acct:[id number] Age/Sex: 48 / F ADM Date: 06/23/23 Loc: [facility] Room: Type: [facility] Attending Dr: Ashkan Brown MD Copies to: Ashkan Brown MD Ordering Provider: Ashkan Brown MD Date of Service: 06/23/23 XR/XR cerv spine AP/LAT/FLX/EXT: PAIN AP with lateral neutral, flexion and extension views of thecervical spine HISTORY: Posterior neck pain with radiation into the arms COMPARISON: None POSTOPERATIVE CHANGES: C5-6 anterior interbody fusion changes. No hardware failure. BONY ALIGNMENT: Straightening. Mild degenerative listhesis. No hypermobility. FRACTURE: None DISC DEGENERATION: Extensive adjacent segment C6-7 spondylosis with large anterior endplate spurs. Extensive C7-T1 spondylosis. FACETS: Multilevel facet degeneration. DENS: Intact CRANIOCERVICAL JUNCTION: Unremarkable SOFT TISSUES: Unremarkable XR/XR cerv spine AP/LAT/FLX/EXT IMPRESSION: No hypermobility. Unremarkable C5-6 fixation. Extensive C6-7 and C7-T1 spondylosis. Impression dictated by: Davon Tovar M.D.06/23/2023 2:05 PM Dictation Location: RADIO-PC-12 Transcribed By: [facility] 06/23/23 1405 Dictated By: Davon Tovar DO 06/23/23 1404 Signed By: 06/23/23 140 Normal [facility] XR elbow RT 2Von 03-18-2023 XR elbow RT 2V [address] [address] XRay Report Signed Patient: Nichelle De Leon MR#: [id number] : 1975 Acct:[id number] Age/Sex: 48 / F ADM Date: 03/18/23 Loc: [facility] Room: Type: [facility] Attending Dr: Naya See MD Copies to: Naya See MD Ordering Provider: Naya See MD Date of Service: 03/18/23 XR/XR elbow RT 2V: Right elbow pain XR elbow RT 2V 03/18/2023 9:09 AM SIGNS AND SYMPTOMS: Right elbow pain, numbness and tingling posteriorly PROTOCOL: Frontal and lateral radiograph of the right elbow COMPARISON: None. FINDINGS: The joint spaces are preserved. There is no significant soft tissue swelling. No joint effusion. No fracture or dislocation. Mild enthesophyte formation is noted along the lateral condyle. XR/XR elbow RT 2V IMPRESSION: No acute bony injury. Mild enthesophyte formation is noted along the medial epicondyle. Impression dictated by: Wild Bruce M.D.03/18/2023 12:56 PM Dictation Location: RADIO--07 Transcribed By: DANA 03/18/23 1256 Dictated By: Wild Bruce II, MD 03/18/23 1247 Signed By: 03/18/23 1256 Normal [facility] XR elbow RT 2V [facility] [employer] Other XR elbow RT 2V [facility] [employer] Other XR elbow RT 2V [address] [place] [address] [employer] Other XR elbow [place] 2[place] [address] No rt [employer] Other XR elbow RT 2V XRay Report [employer] Other XR elbow RT 2V Signed [employer] Other XR elbow RT 2V Patient: Nichelle De Leon MR#: [id number] [employer] Other XR elbow RT 2V : 1975 Acct:[id number] [employer] Other XR elbow RT 2V Age/Sex: 48 / F ADM Date: 03/18/23 [employer] Other XR elbow RT 2V Loc: [facility] Room: Type : [facility] [employer] Other XR elbow RT 2V Attending Dr: Marlon See MD [employer] Other XR elbow RT 2V Copies to: Naya See MD [employer] Other XR elbow RT 2V Ordering Provider: Naya See MD [employer] Other XR elbow RT 2V Date of Service: 03/18/23 [employer] Other XR elbow RT 2V XR/XR elbow RT 2V: Right elbow pain [employer] Other XR elbow RT 2V XR elbow RT 2V 03/18/2023 9:09 AM [employer] Other XR elbow RT 2V SIGNS AND SYMPTOMS: Right elbow pain, numbness and tingling posteriorly [employer] Other XR elbow RT 2V PROTOCOL: Frontal an d lateral radiograph of the right elbow [employer] Other XR elbow RT 2V COMPARISON: None. Nor [employer] Other XR elbow RT 2V FINDINGS: [employer] Other XR elbow RT 2V The joint spaces are preserved. There is no significant soft tissue swelling. No joint effusion. No [employer] Other XR elbow RT 2V fracture or dislocation. Mild enthesophyte formation is noted along the lateral condyle. [employer] Other XR elbow RT 2V XR/XR elbow RT 2V [employer] Other XR elbow RT 2V IMPRESSION: [employer] Other XR elbow RT 2V No acute bony injury. [employer] Other XR elbow RT 2V Mild enthesophyte formation is noted along the medial epicondyle. [employer] Other XR elbow RT 2V Impression dictated by: Wild Bruce M.D.03/18/2023 12:56 PM [employer] Other XR elbow RT 2V Dictation Location: [place] [address] [employer] Other XR elbow RT 2V Transcribed By: DANA 03/18/23 1256 [employer] Other XR elbow RT 2V Dictated By: Wild Bruce II, MD 03/18/23 1247 [employer] Other XR elbow RT 2V Signed By: [employer] Other XR elbow RT 2V 03/18/23 1254 [employer] Other MG MAMM SCREEN 3D DEN CADon 10-30-2022 MG MAMM SCREEN 3D DEN CAD Patient: NICHELLE DE LEON Exam Date: 10/30/2022 : 1975 Gender:F Ordering : DR MARCELLUS CID Admission #: [id number] Family : Order #: [id number] CLICK HERE TO VIEW EXAM RADIOLOGY REPORT PROCEDURE: MAMMOGRAM SCREENING 3D BILATERAL CAD COMPARISON: MG MAMM SCREEN DEN W CAD, 10/29/2019. MG MAMM SCREEN DEN W CAD, 08/18/2018. MG MAMM DEN SCRN W CAD DIG, 06/22/2015. MG MAMM SCREEN 3D DEN CAD, 10/29/2021. INDICATIONS: Screening mammography Calculator Name NCI Breast Cancer Risk Assessment Tool 5 Year Breast Cancer Risk 0.60% Lifetime Breast Cancer Risk 6.80% Personal Breast Cancer No Personal Ovarian Cancer No Treatments thyroidectomy Family Cancers None LOCATION: [facility] BREAST COMPOSITION: Heterogeneously dense,which may obscure small masses. FINDINGS: DIAGNOSTIC CATEGORY 1--NEGATIVE. RIGHT BREAST: No significant suspicious finding. No significant change has occurred. LEFT BREAST: No significant suspicious finding. No significant change has occurred. RECOMMENDATIONS: ROUTINE MAMMOGRAM AND CLINICAL EVALUATION IN 12 MONTHS. PLEASE NOTE: A NORMAL MAMMOGRAM DOES NOT EXCLUDE THE POSSIBILITY OF BREAST CANCER. A CLINICALLY SUSPICIOUS PALPABLE LUMP SHOULD BE BIOPSIED. Dictated by: Markus Hernandez M.D. on 10/30/2022 at 09:17 Approved by: Markus Hernandez M.D. on 10/30/2022 at 09:20 Normal [facility] Free T3on 02-13-2022 FT3 3.32 pg/mL Normal 2.00-4.40 [facility] Specialist Comment on above: Performed By: #### F T4, FT3, TSH #### [facility] [address] [place], [place] [id number] Free T4on 02-13-2022 Free T4 [Mass/Vol] 1.13 ng/dL Normal 0.80-1.80 [facility] Specialist Comment on above: Performed By: #### F T4, FT3, TSH #### [facility] [address] [place], [place] [id number] TSHon 02-13-2022 TSH Qn m[IU]/L Low [facility] Specialist Comment on above: Performed By: #### F T4, FT3, TSH #### [facility] [address] [place], [place] [id number] Vital Signs Date Time Vital Sign Value Performing Clinician Facility 07-01-2024 11:34-0400 Body mass index (BMI) [Ratio] 32.31 kg/m2 GISSEL Locke MD Work Phone: [facility] 07-01-2024 11:34-0400 Body temperature 98.49 [degF] GISSEL Locke MD Work Phone: [facility] 07-01-2024 11:34-0400 Body weight 73.8 kg GISSEL Locke MD Work Phone: [facility] 07-01-2024 11:34-0400 Diastolic blood pressure 87 mm[Hg] GISSEL Locke MD Work Phone: [facility] 07-01-2024 11:34-0400 Heart rate 82 /min GISSEL Locke MD Work Phone: [facility] 07-01-2024 11:34-0400 Respiratory rate 16 /min GISSEL Locke MD Work Phone: [facility] 07-01-2024 11:34-0400 SaO2% (BldA) [Mass fraction] 99 % GISSEL Locke MD Work Phone: [facility] 07-01-2024 11:34-0400 Systolic blood pressure 135 mm[Hg] GISSEL Locke MD Work Phone: [facility] 03-02-2024 09:21-0400 Body height 149.86 cm MD Gurmeet Sahu Work Phone: [facility] 03-02-2024 09:21-0400 Body mass index (BMI) [Ratio] 35.3 kg/m2 MD Gurmeet Sahu Work Phone: [facility] 03-02-2024 09:21-0400 Body weight 79.37 kg MD Gurmeet Sahu Work Phone: [facility] 01-01-2024 14:30-0500 Body height 149.86 cm Nyasia Vance Other [employer] Other 01-01-2024 14:30-0500 Body mass index (BMI) [Ratio] 35.14 kg/m2 Nyasia Vance Other [employer] Other 01-01-2024 14:30-0500 Body weight 78.93 kg Nyasia Vance Other [employer] Other 08-06-2023 09:15-0400 Body height 149.86 cm Ashkan Brown Other [employer] Other 05-15-2023 15:06-0400 Body temperature 97.59 [degF] GISSEL Locke MD Work Phone: [facility] 05-15-2023 15:06-0400 Body weight 73.66 kg GISSEL Locke MD Work Phone: [facility] 05-15-2023 15:06-0400 Diastolic blood pressure 91 mm[Hg] GISSEL Locke MD Work Phone: [facility] 05-15-2023 15:06-0400 Heart rate 89 /min GISSEL Locke MD Work Phone: [facility] 05-15-2023 15:06-0400 Respiratory rate 18 /min GISSEL Locke MD Work Phone: [facility] 05-15-2023 15:06-0400 SaO2% (BldA) [Mass fraction] 99 % GISSEL Locke MD Work Phone: [facility] 05-15-2023 15:06-0400 Systolic blood pressure 141 mm[Hg] GISSEL Locke MD Work Phone: [facility] 04-02-2023 09:45-0400 Body height 149.86 cm Ashkan Brown Other [employer] Other 03-18-2023 10:00-0400 Body height 149.86 cm Naya See Other [employer] Other 03-18-2023 10:00-0400 Body mass index (BMI) [Ratio] 41 kg/m2 Nyaa See Other [employer] Other 03-18-2023 10:00-0400 Body weight 92.08 kg Naya See Other [place] [employer] Other 06-13-2022 12:15-0400 Body height 149.86 cm Ashkan Brown Other [employer] Other 06-13-2022 12:15-0400 Body mass index (BMI) [Ratio] 41 kg/m2 Ashkan Brown Other [employer] Other 06-13-2022 12:15-0400 Body weight 92.08 kg Ashkan Brown Other [employer] Other 05-14-2022 15:47-0400 Body temperature 97.7 [degF] GISSEL Locke MD Work Phone: [facility] 05-14-2022 15:47-0400 Body weight 88.45 kg GISSEL Locke MD Work Phone: [facility] 05-14-2022 15:47-0400 Diastolic blood pressure 50 mm[Hg] GISSEL Locke MD Work Phone: [facility] 05-14-2022 15:47-0400 Heart rate 84 /min GISSEL Locke MD Work Phone: [facility] 05-14-2022 15:47-0400 Respiratory rate 18 /min GISSEL Locke MD Work Phone: [facility] 05-14-2022 15:47-0400 SaO2% (BldA) [Mass fraction] 99 % GISSEL Locke MD Work Phone: [facility] 05-14-2022 15:47-0400 Systolic blood pressure 122 mm[Hg] GISSEL Locke MD Work Phone: [facility] 04-16-2022 16:15-0400 Body height 149.86 cm Ashkan Brown Other [employer] Other 04-16-2022 16:15-0400 Body mass index (BMI) [Ratio] 41 kg/m2 Ashkan Felter Other [employer] Other 04-16-2022 16:15-0400 Body weight 92.08 kg Ashkan Felter Other [employer] Other 11-06-2021 15:30-0500 Body height 149.86 cm Ashkan Felter Other [employer] Other 11-06-2021 15:30-0500 Body mass index (BMI) [Ratio] 41 kg/m2 Ashkan Felter Other [employer] Other 11-06-2021 15:30-0500 Body weight 92.08 kg Ashkan Felter Other [employer] Other 10-30-2021 15:20-0500 Body height 149.86 cm Mo Trevino Other [employer] Other 10-30-2021 15:20-0500 Body mass index (BMI) [Ratio] 41 kg/m2 Mo Trevino Other [employer] Other 10-30-2021 15:20-0500 Body weight 92.08 kg Mo Trevino Other [employer] Other 10-30-2021 15:20-0500 Diastolic blood pressure 69 mm[Hg] Mo Trevino Other [employer] Other 10-30-2021 15:20-0500 Systolic blood pressure 128 mm[Hg] Mo Trevino Other [employer] Other Encounters Encounter Date Encounter Type Care Provider Facility Start: 09-16-2024 End: 09-16-2024 Bamboo flowsheet Jourdan Herr PA Work Phone: [facility] Start: 09-16-2024 End: 09-16-2024 Bamboo flowsheet Jourdan Herr PA Work Phone: [facility] Start: 09-16-2024 End: 09-16-2024 Office outpatient visit 15 minutes Jourdan Herr PA Work Phone: [facility] Comment on above: Acute pain of left s houlder (Primary Dx); S/P arthroscopy of right shoulder Start: 09-16-2024 End: 09-16-2024 ambulatory JOURDAN HERR Not Available Start: 09-09-2024 End: 09-09-2024 Office outpatient visit 25 minutes Gurmeet Sahu MD Work Phone: [facility] Comment on above: Postsurgical hypothy roidism (CMS/HCC) (Primary Dx); Central hypothyroidism (CMS/HCC); Euthyroid sick syndrome; Chronic fatigue; Non morbid obesity due to excess calories Start: 09-09-2024 End: 09-09-2024 ambulatory GURMEET SAUH Not Available Start: 09-09-2024 End: 09-09-2024 Bamboo flowsheet Gurmeet Sahu MD Work Phone: [facility] Start: 09-09-2024 End: 09-09-2024 Bamboo flowsheet Gurmeet Sahu MD Work Phone: [facility] Start: 09-07-2024 End: 09-07-2024 Bamboo flowsheet Milton Garcia DO Work Phone: [facility] Start: 09-07-2024 End: 09-07-2024 Bamboo flowsheet Milton Garcia DO Work Phone: [facility] Start: 09-07-2024 End: 09-07-2024 Office outpatient visit 10 minutes Milton Garcia DO Work Phone: [facility] Comment on above: S/P total knee repla cement, left; S/P total knee replacement, right; Arthritis of left knee; Arthritis of right knee Start: 09-07-2024 End: 09-07-2024 ambulatory MILTON GARCIA Not Available Start: 09-03-2024 End: 09-03-2024 Bamboo flowsheet Lani Kwon MULTIPLE SCLEROSIS NURSE [facility] Start: 09-03-2024 End: 09-03-2024 Bamboo flowsheet Lani Kwon MULTIPLE SCLEROSIS NURSE [facility] Start: 09-03-2024 End: 09-03-2024 ambulatory Lani Kwon MULTIPLE SCLEROSIS NURSE [facility] Comment on above: S/P arthroscopy of r ight shoulder (Primary Dx); Acute pain of right shoulder; Biceps tendonitis on right Start: 09-01-2024 End: 09-01-2024 ambulatory Alicia Cisneros PT [facility] Comment on above: S/P arthroscopy of r ight shoulder (Primary Dx); Acute pain of right shoulder; Biceps tendonitis on right Start: 08-27-2024 End: 08-29-2024 ambulatory Jun Rivera MULTIPLE SCLEROSIS NURSE [facility] Comment on above: S/P arthroscopy of r ight shoulder (Primary Dx); Acute pain of right shoulder; Biceps tendonitis on right Start: 08-27-2024 End: 08-30-2024 Saira Farooq MAILER APPRENTICE Work Phone: [facility] Comment on above: Hypertension, unspec ified type (CMS/HCC); Intractable chronic migraine without aura and without status migrainosus (CMS/HCC) Start: 08-25-2024 End: 08-25-2024 Bamboo flowsheet Jun Rivera MULTIPLE SCLEROSIS NURSE [facility] Start: 08-25-2024 End: 08-25-2024 Bamboo flowsheet Jun Rivera MULTIPLE SCLEROSIS NURSE [facility] Start: 08-25-2024 End: 08-25-2024 ambulatory Jun Rivera MULTIPLE SCLEROSIS NURSE [facility] Comment on above: S/P arthroscopy of r ight shoulder (Primary Dx); Acute pain of right shoulder; Biceps tendonitis on right Start: 08-19-2024 End: 08-19-2024 ambulatory ALICIA CISNEROS Not Available Start: 08-16-2024 End: 08-17-2024 ambulatory ALICIA CISNEROS Not Available Start: 08-12-2024 End: 08-12-2024 ambulatory ALICIA CISNEROS Not Available Start: 08-05-2024 End: 08-05-2024 ambulatory JOURDAN HERR Not Available Start: 07-29-2024 End: 07-29-2024 ambulatory YENIFER FAROOQ Not Available Start: 07-21-2024 End: 07-21-2024 ambulatory MARCELLUS IVYLorena [facility] Start: 07-01-2024 End: 07-01-2024 Patient encounter procedure G Christofer Locke MD Work Phone: Radiation Oncology Comment on above: History of thyroid c ancer (Primary Dx) Start: 07-01-2024 End: 07-01-2024 ambulatory GURMEET SAHU Facility:[facility] Start: 06-16-2024 End: 06-16-2024 ambulatory ALICIA CISNEROS Not Available Start: 06-07-2024 End: 06-07-2024 ambulatory ALICIA CISNEROS Not Available Start: 06-02-2024 End: 06-02-2024 ambulatory GURMEET SAHU Not Available Start: 06-01-2024 End: 06-01-2024 ambulatory JOURDAN HERR Not Available Start: 05-25-2024 End: 05-25-2024 ambulatory GURMEET SAHU Not Available Start: 05-18-2024 End: 05-18-2024 Evaluation and management of inpatient [facility] Start: 05-18-2024 End: 05-18-2024 Evaluation and management of inpatient BABAK KNIGHT [facility] Start: 05-12-2024 End: 05-12-2024 ambulatory MAGDALENE LESTER Not Available Start: 05-11-2024 Encounter for other preprocedural examination TERESA [facility] Start: 05-11-2024 End: 05-11-2024 ambulatory BABAK KNIGHT [facility] Start: 05-03-2024 End: 05-03-2024 ambulatory GURMEET SAHU Facility:[facility] Start: 04-30-2024 End: 04-30-2024 ambulatory JOURDAN HERR Not Available Start: 04-28-2024 Telephone encounter G Christofer Locke MD Work Phone: Radiation Oncology Comment on above: Orders Start: 04-28-2024 End: 04-28-2024 ambulatory BABAK CHACON Not Available Start: 04-28-2024 End: 04-28-2024 ambulatory YENIFER FAROOQ Not Available Start: 04-26-2024 End: 04-26-2024 ambulatory ROXANNE BRINK Not Available Start: 04-22-2024 End: 04-22-2024 ambulatory ROXANNE BRINK Not Available Start: 04-20-2024 End: 04-20-2024 ambulatory LANI KELBLEY Not Available Start: 04-13-2024 End: 04-13-2024 ambulatory ROXANNE BRINK Not Available Start: 04-12-2024 End: 04-12-2024 ambulatory ROXANNE BRINK Not Available Start: 04-06-2024 End: 04-06-2024 ambulatory LANI KELBLEY Not Available Start: 04-05-2024 End: 04-05-2024 ambulatory YAA Adria PATTIECLAY Not Available Start: 03-31-2024 End: 03-31-2024 ambulatory JOURDAN Duvall MAIA Not Available Start: 03-17-2024 End: 03-17-2024 ambulatory GURMEET SAHU Not Available Start: 03-10-2024 End: 03-10-2024 ambulatory BABAK CHACON Not Available Start: 03-03-2024 End: 03-03-2024 ambulatory YENIFER FAROOQ Not Available Start: 03-03-2024 End: 03-03-2024 ambulatory GURMEET SAHU Not Available Start: 03-02-2024 End: 03-02-2024 ambulatory MD Gurmeet Sahu Work Phone: [facility] Work Phone: Start: 03-02-2024 End: 03-02-2024 Patient encounter procedure MD Gurmeet Sahu Work Phone: [facility] Work Phone: Start: 02-20-2024 End: 02-20-2024 ambulatory Yenifer Farooq Facility:[facility] Start: 02-20-2024 End: 02-20-2024 Admission to same day surgery center MD Gurmeet Sahu Work Phone: [facility] [address] [place] Work Phone: Start: 02-20-2024 End: 02-20-2024 ambulatory MD Gurmeet Sahu Work Phone: [facility] Work Phone: Start: 01-27-2024 End: 01-27-2024 ambulatory GURMEET SAHU Not Available Start: 01-22-2024 End: 01-22-2024 ambulatory YENIFER FAROOQ Not Available Start: 01-01-2024 End: 01-01-2024 ambulatory Gurmeet Sahu Facility:[facility] Start: 01-01-2024 End: 01-01-2024 Patient encounter procedure MD Gurmeet Sahu Work Phone: [facility] [address] [place] Work Phone: Start: 01-01-2024 End: 01-01-2024 ambulatory MD Gurmeet Sahu Work Phone: [facility] Work Phone: Start: 01-01-2024 Office outpatient vi sit 15 minutes Nyasia Vance [facility] Start: 12-24-2023 End: 12-24-2023 ambulatory YENIFER FAROOQ Not Available Start: 12-05-2023 End: 12-05-2023 ambulatory KORINA RIBEIRO Not Available Start: 12-03-2023 End: 12-03-2023 ambulatory GURMEET SAHU Not Available Start: 10-29-2023 End: 10-29-2023 ambulatory Ashkan Brown Other [facility] [employer] Other Start: 12-06-2023 Office outpatient vi sit 15 minutes Ashkan Felter [facility] [place] Start: 10-29-2023 End: 10-29-2023 Patient encounter procedure MD Gurmeet Sahu Work Phone: [facility] [place] Work Phone: Start: 10-20-2023 End: 10-20-2023 ambulatory GURMEET SAHU Not Available Start: 10-13-2023 (Procedure) Short Ashkan Briggser [facility] Start: 10-13-2023 End: 10-13-2023 ambulatory Ashkan Brown Other [employer] Other Start: 10-01-2023 Office outpatient vi sit 25 minutes Ashkan Briggser [facility] [place] Start: 10-01-2023 End: 10-01-2023 ambulatory MD Gurmeet Sahu Work Phone: [employer] Other Start: 10-01-2023 End: 10-01-2023 Patient encounter procedure MD Gurmeet Sahu Work Phone: [facility] [place] [facility] Start: 09-03-2023 End: 09-03-2023 ambulatory Ashkan Brown Other [employer] Other Start: 09-03-2023 Office outpatient vi sit 15 minutes Ashkan Chesterer [facility] [place] Start: 08-06-2023 Office outpatient vi sit 25 minutes Ashkan Felter [facility] [place] Start: 08-06-2023 End: 08-06-2023 ambulatory Ashkan Briggser [employer] Other Start: 08-06-2023 End: 08-06-2023 Patient encounter procedure MD Gurmeet Sahu Work Phone: [facility] Start: 07-18-2023 End: 07-18-2023 Patient encounter procedure Gurmeet Sahu MD Work Phone: [facility] Start: 07-18-2023 End: 07-18-2023 Subsequent hospital visit by physician Gurmeet Sahu MD Work Phone: [facility] Comment on above: Women's annual routi ne gynecological examination Start: 06-23-2023 Office outpatient vi sit 25 minutes Ashkan Brown [facility] [place] Start: 06-23-2023 End: 06-23-2023 ambulatory MD Gurmeet Sahu Work Phone: [employer] Other Start: 06-23-2023 End: 06-23-2023 Patient encounter procedure MD Gurmeet Sahu Work Phone: [facility] Start: 05-15-2023 End: 05-15-2023 Patient encounter procedure Kristi Locke MD Work Phone: Radiation Oncology Comment on above: History of thyroid c ancer (Primary Dx) Start: 04-30-2023 Telephone encounter Kristi Locke MD Work Phone: [facility]iation [facility]cology Comment on above: Lab Orders Start: 04-04-2023 End: 04-04-2023 ambulatory Naya See Other [employer] Other Start: 04-04-2023 Office outpatient vi sit 15 minutes Naya Charlesey [facility] Start: 04-02-2023 End: 04-02-2023 ambulatory Ashkan Brown Other [employer] Other Start: 04-02-2023 Office outpatient vi sit 15 minutes Ashkan Brown [facility] [place] Start: 03-26-2023 (Procedure) Short Ashkan Brown [facility] Start: 03-26-2023 End: 03-26-2023 ambulatory Ashkan Brown Other [employer] Other Start: 03-18-2023 Office outpatient ne w 45 minutes Nayanila See [facility] Start: 03-18-2023 End: 03-18-2023 ambulatory MD Gurmeet Sahu Work Phone: [facility] Work Phone: Start: 03-18-2023 End: 03-18-2023 Patient encounter procedure MD Gurmeet Sahu Work Phone: [facility] [place] Start: 03-12-2023 Office outpatient vi sit 25 minutes Ashkan Felter [facility] [place] Start: 03-12-2023 End: 03-12-2023 ambulatory MD Gurmeet Sahu Work Phone: [employer] Other Start: 03-12-2023 End: 03-12-2023 Patient encounter procedure MD Gurmeet Sahu Work Phone: [facility] Start: 02-19-2023 (Procedure) Dio Ashkan Brown [facility] Start: 02-19-2023 End: 02-19-2023 ambulatory Ashkan Brown Other [employer] Other Start: 02-06-2023 End: 02-06-2023 ambulatory Ashkan Felter Other [employer] Other Start: 02-06-2023 Office outpatient vi sit 25 minutes Ashkan Felter [facility] Start: 10-30-2022 End: 10-31-[address] MARCELLUS CID Facility: Start: 07-17-2022 End: 07-17-2022 Patient encounter status Gurmeet Sahu MD Work Phone: [facility] Start: 07-17-2022 End: 07-17-2022 Subsequent hospital visit by physician Gurmeet Sahu MD Work Phone: [facility] Comment on above: Encounter for gyneco logical examination without abnormal finding Start: 06-24-2022 (Procedure) Dio Brown [facility] Start: 06-24-2022 End: 06-24-2022 ambulatory Ashkan Brown Other [employer] Other Start: 06-13-2022 End: 06-13-2022 ambulatory Ashkan Briggser Other [employer] Other Start: 06-13-2022 Office outpatient vi sit 25 minutes Ashkan Briggser [facility] Start: 06-05-2022 (Procedure) Dio Brown [facility] Start: 06-05-2022 End: 06-05-2022 ambulatory Ashkan Briggser Other [employer] Other Start: 05-16-2022 End: 05-16-2022 ambulatory Ashkan Briggser Other [employer] Other Start: 05-16-2022 Office outpatient vi sit 25 minutes Ashkan Felter [facility] Start: 05-14-2022 End: 05-14-2022 Patient encounter procedure Kristi Locke MD Work Phone: Rad[facility] Oncology Comment on above: History of thyroid c ancer (Primary Dx) Start: 05-08-2022 (Procedure) Dio Brown [facility] Start: 05-08-2022 End: 05-08-2022 ambulatory Ashkan Briggser Other [employer] Other Start: 05-07-2022 Telephone encounter Kristi Locke MD Work Phone: [facility] Comment on above: Orders Start: 04-16-2022 End: 04-16-2022 ambulatory Ashkan Briggser Other [employer] Other Start: 04-16-2022 Office outpatient vi sit 25 minutes Ashkan Felter [facility] Start: 03-11-2022 End: 03-11-2022 ambulatory Ashkan Briggser Other [employer] Other Start: 03-11-2022 Office outpatient vi sit 25 minutes Ashkan Felter [facility] Start: 12-17-2021 End: 12-17-2021 ambulatory Ashkan Brown Other [employer] Other Start: 12-17-2021 Office outpatient vi sit 15 minutes Ashkan Briggscorine [facility] Start: 12-04-2021 (Procedure) Short Ashkan Briggscorine [facility] Start: 12-04-2021 End: 12-04-2021 ambulatory Ashkan Chestercorine Other [employer] Other Start: 11-06-2021 End: 11-06-2021 ambulatory Gurmeet Sahu Other [employer] Other Start: 11-06-2021 Encounter by shaquille Sahu [facility] Start: 11-06-2021 Office outpatient ne w 45 minutes Ashkan Brown [facility] Start: 10-30-2021 End: 10-30-2021 ambulatory Mo Trevino Other [place] [employer] Other Start: 10-30-2021 Office outpatient ne w 45 minutes Mo Trevino [facility] Start: 05-10-2021 End: 05-10-2021 Patient encounter status Gurmeet Sahu MD Work Phone: [email or web address] Start: 05-10-2021 End: 05-10-2021 Subsequent hospital visit by physician Gurmeet Sahu MD [facility] Comment on above: Encounter for gyneco logical examination without abnormal finding Procedures Date Procedure Procedure Detail Performing Clinician Start: 09-07-2024 Radiologic examinati on knee 1/2 views Milton Garcia DO Work Phone: Start: 07-21-2024 Microscopic observat ion [Identifier] in Cervix by Cyto stain Jun Rivera PTA Start: 05-12-2024 Lipid 1996 panel - S milena or Plasma GISSEL Locke MD Work Phone: Start: 02-20-2024 Plain X-ray of right shoulder MD Gurmeet Sahu Work Phone: Start: 02-20-2024 Magnetic resonance arthrography of right shoulder MD Gurmeet Sahu Work Phone: Start: 01-01-2024 X-ray of cervical spine MD Gurmeet Sahu Work Phone: Start: 10-01-2023 Plain X-ray of right hip MD Gurmeet Sahu Work Phone: Start: 08-06-2023 Plain X-ray of bilat eral shoulders MD Gurmeet Sahu Work Phone: Start: 06-23-2023 X-ray of cervical spine MD Gurmeet Sahu Work Phone: Start: 03-18-2023 Plain X-ray of right elbow MD Gurmeet Sahu Work Phone: Start: 03-12-2023 Plain X-ray of right hip MD Gurmeet Sahu Work Phone: Start: 10-30-2022 Mammography Jun Triplett MULTIPLE SCLEROSIS NURSE Start: 07-17-2022 Microscopic observat ion [Identifier] in Cervix by Cyto stain Gurmeet Sahu MD Work Phone: Start: 05-13-2022 Adult depression scr eening assessment GISSEL Locke MD Work Phone: Start: 05-10-2021 Microscopic observat ion [Identifier] in Cervix by Cyto stain Gurmeet Sahu MD Work Phone: Start: 04-26-2020 Adult depression scr eening assessment GISSEL Locke MD Work Phone: Start: 08-24-2018 Mammography GISSEL Locke MD Work Phone: Plan of Treatment Date Care Activity Detail Author Start: 07-21-2029 Screening for malignant neoplasm of cervix [facility] Start: 05-12-2029 Lipid panel Lipid Screening [facility] Start: 07-21-2027 Screening for malignant neoplasm of cervix Pap Smear [facility] Start: 09-14-2026 End: 09-14-2026 Patient encounter procedure 09/14/2026 10:00 AM EDT Office Visit [facility] [address] [place] [address] Jourdan Herr PA [address] [place] [address] [facility] Start: 07-17-2025 Screening for malignant neoplasm of cervix [facility] Start: 07-01-2025 End: 09-30-2025 Thyroglobulin and Thyrogobulin Ab panel - Serum or Plasma THYROGLOBULIN, SERUM WITH REFLEX TO IA OR LC-MS/MS Lab Routine History of thyroid cancer Expected: 07/01/2025, Expires: 09/30/2025 [facility] Work Phone: Comment on above: Expected: 07/01/2025, Expires: Start: 06-30-2025 End: 06-30-2025 Patient encounter procedure 06/30/2025 11:30 AM EDT Office Visit Radiation Oncology [address] [place] [address] Kristi Locke MD [address] [place] [address] [place] [address] 1 Yr Follow Up Radiation Oncology Comment on above: 1 Yr Follow Up Start: 06-23-2025 End: 06-23-2025 Patient encounter procedure 06/23/2025 11:00 AM EDT Office Visit [facility] [address] [place] [address] lab [facility] Comment on above: lab Start: 01-26-2025 Screening for malignant neoplasm of colon Colorectal Cancer Screening [facility] Comment on above: Postponed from 1975 (Patient Refus ed) Start: 12-09-2024 End: 12-09-2024 Telemedicine consultation with patient [facility] Start: 11-22-2024 End: 11-22-2024 Patient encounter procedure [facility] Start: 11-14-2024 End: 09-14-2025 T3, reverse T3, reverse Lab Routine Chronic fatigue Central hypothyroidism (CMS/HCC) Expected: 11/14/2024, Expires: 09/14/2025 [facility] Work Phone: Comment on above: Expected: 11/14/2024, Expires: Start: 11-14-2024 End: 09-14-2025 Thyroxine (T4) free [Mass/volume] in Serum or Plasma T4, free Lab Routine Chronic fatigue Central hypothyroidism (CMS/HCC) Expected: 11/14/2024, Expires: 09/14/2025 [facility] Comment on above: Expected: 11/14/2024, Expires: Start: 11-14-2024 End: 09-14-2025 Triiodothyronine (T3) [Mass/volume] in Serum or Plasma T3 Lab Routine Chronic fatigue Central hypothyroidism (CMS/HCC) Expected: 11/14/2024, Expires: 09/14/2025 [facility] Comment on above: Expected: 11/14/2024, Expires: Start: 11-14-2024 End: 09-14-2025 Triiodothyronine (T3) Free [Mass/volume] in Serum or Plasma T3, free Lab Routine Chronic fatigue Central hypothyroidism (CMS/HCC) Expected: 11/14/2024, Expires: 09/14/2025 [facility] Comment on above: Expected: 11/14/2024, Expires: Start: 11-05-2024 End: 11-05-2024 Patient encounter procedure 11/05/2024 9:45 AM EST Procedure Visit [facility] [address] [facility] [address] [place] [address] Yenifer Farooq, MAILER APPRENTICE [address] [facility] [address] [address] [facility] Start: 09-16-2024 End: 09-16-2024 Patient encounter procedure [facility] Comment on above: Acute pain of left shoulder (Primary Dx) Start: 09-09-2024 End: 09-09-2024 Patient encounter procedure 09/09/2024 3:30 PM EDT Office Visit [facility] [address] [facility] [address] [place] [address] Gurmeet Sahu MD [address] [place] [address] (Fax) [facility] Start: 09-09-2024 End: 09-09-2024 Telemedicine consultation with patient [facility] Comment on above: Euthyroid sick syndrome; Postsurgical hypothyroidism (CMS/HCC); Chronic fatigue; Non morbid obesity due to excess calories Start: 09-07-2024 End: 09-07-2024 Patient encounter procedure [facility] Comment on above: S/P total knee replacement, left; S/P total knee replacement, right; Arthritis of left knee; Arthritis of right knee Start: 09-03-2024 End: 09-03-2024 ambulatory [facility] Comment on above: S/P arthroscopy of right shoulder (Prima ry Dx); Acute pain of right shoulder; Biceps tendonitis on right Start: 09-01-2024 End: 09-01-2024 ambulatory 09/01/2024 5:00 PM EDT Treatment [facility] [address] [facility] [address] [place] [address] Alicia Cisneros, JADEN [facility] Start: 08-30-2024 End: 08-30-2024 Patient encounter procedure 08/30/2024 9:30 AM EDT Office Visit [facility] [address] [facility] [address] [place] [address] Gurmeet Sahu MD [address] [place] [address] (Fax) [facility] Start: 08-27-2024 End: 08-27-2024 ambulatory 08/27/2024 3:00 PM EDT Treatment [facility] [address] [facility] [address] [place] [address] Jun Rivera MULTIPLE SCLEROSIS NURSE [facility] Start: 08-25-2024 End: 08-25-2024 ambulatory 08/25/2024 1:30 PM EDT Treatment [facility] [address] [facility] [address] [place] [id number] Jun Rivera, MULTIPLE SCLEROSIS NURSE Arrived [facility] Comment on above: Arrived Start: 07-25-2024 Influenza vaccination [facility] Start: 07-21-2024 End: 07-21-2024 Patient encounter procedure 07/21/2024 Office Visit Obstetrics and Gynecology Marcellus Cid MD [address] [place] [address] [facility] of [facility] Start: 05-18-2024 End: 05-18-2024 Patient encounter procedure 05/18/2024 1:45 PM EDT Office Visit Radiation Oncology [address] [place] [address] Kristi Locke MD [address] [place] [address] 1 Yr Follow Up Radiation Oncology Comment on above: 1 Yr Follow Up Start: 05-10-2024 Screening for malignant neoplasm of cervix [facility] Start: 05-04-2024 End: 05-04-2024 Patient encounter procedure 05/04/2024 1:00 PM EDT Office Visit [facility] [address] [facility] [place] [address] 1 Yr Follow Up [facility] Comment on above: 1 Yr Follow Up Start: 04-28-2024 End: 07-28-2024 THYROGLOBULIN BY LC-MS/MS, SERUM OR PLASMA, FOR THYROGLOBULIN ANTIBODY INTERFERENCE THYROGLOBULIN BY LC-MS/MS, SERUM OR PLASMA, FOR THYROGLOBULIN ANTIBODY INTERFERENCE Lab Routine History of thyroid cancer Expected: 04/28/2024, Expires: 07/28/2024 [facility] Work Phone: Comment on above: Expected: 04/28/2024, Expires: Start: 03-02-2024 Patient referral [facility] Work Phone: Start: 01-04-2024 PAP TESTING PAP TESTING [facility] Start: 01-04-2024 Screening for malignant neoplasm of cervix [facility] Start: 11-24-2023 Behavioral Health Screening Behavioral Health Screening [facility] Start: 10-30-2023 Screening for malignant neoplasm of breast [facility] Start: 09-11-2023 Depression Screen Depression Screen [facility] Start: 07-25-2023 Covid-19 Vaccine ( season) Covid-19 Vaccine () [facility] Start: 07-25-2023 Influenza vaccination INFLUENZA (Season Ended) [facility] Start: 06-24-2023 Influenza vaccination Flu vaccine (#1) [facility] Start: 06-22-2023 Screening for malignant neoplasm of cervix HPV (without or with Pap) [facility] Start: 05-15-2023 End: 07-15-2023 THYROGLOBULIN BY MASS SPECTROMETRY THYROGLOBULIN BY MASS SPECTROMETRY Lab Routine History of thyroid cancer Expected: 05/15/2023, Expires: 07/15/2023 [facility] Work Phone: Comment on above: Expected: 05/15/2023, Expires: 3 Start: 05-13-2023 Adult depression screening assessment DEPRESSION SCREENING [facility] Start: 04-30-2023 End: 06-30-2023 Thyroglobulin and Thyrogobulin Ab panel - Serum or Plasma THYROGLOBULIN, SERUM WITH REFLEX TO IA OR LC-MS/MS Lab Routine History of thyroid cancer Expected: 04/30/2023, Expires: 06/30/2023 [facility] Work Phone: Comment on above: Expected: 04/30/2023, Expires: 3 Start: 11-24-2022 DEPRESSION ASSESSMENT DEPRESSION ASSESSMENT [facility] Start: 08-14-2022 End: 08-14-2022 Patient encounter procedure 08/14/2022 Office Visit Obstetrics and Gynecology Marcellus Cid MD [address] [facility] [place] [id number] [facility] Start: 07-25-2022 Influenza vaccination Flu vaccine (#1) [facility] Start: 05-14-2022 End: 07-14-2022 Thyroglobulin Ab [Units/volume] in Serum or Plasma THYROGLOBULIN AB Lab Routine History of thyroid cancer Expected: 05/14/2022, Expires: 07/14/2022 [facility] Work Phone: Comment on above: Expected: 05/14/2022, Expires: 2 Start: 05-14-2022 End: 07-14-2022 Thyroglobulin and Thyrogobulin Ab panel - Serum or Plasma THYROGLOBULIN BLD Lab Routine History of thyroid cancer Expected: 05/14/2022, Expires: 07/14/2022 [facility] Work Phone: Comment on above: Expected: 05/14/2022, Expires: 2 Start: 02-15-2022 COVID-19 VACCINE (4 - Booster for Moderna series) COVID-19 VACCINE (4 - Booster for Moderna series) [facility] Start: 01-04-2022 Screening for malignant neoplasm of cervix Cervical Cancer Screening [facility] Start: 08-28-2021 COVID-19 Vaccine (3 - Booster for Moderna series) COVID-19 Vaccine (3 - Booster for Moderna series) [facility] Start: 08-07-2021 Diabetes Screening Diabetes Screening [facility] Start: 08-04-2021 DIABETES SCREEN DIABETES SCREEN [facility] Start: 06-07-2021 End: 06-07-2021 Patient encounter procedure 06/07/2021 Office Visit Obstetrics and Gynecology Marcellus Cid MD [address] [facility] [address] [place] [address] [phone] [facility] Start: 05-22-2021 COVID-19 Vaccine (3 - Booster for Moderna series) COVID-19 Vaccine (3 - Booster for Moderna series) [facility] Start: 04-26-2021 Adult depression screening assessment DEPRESSION SCREENING [facility] Start: 2020 COLOGUARD (FIT-DNA) COLOGUARD (FIT-DNA) [facility] Start: 2020 Colonoscopy COLONOSCOPY [facility] Start: 2020 COLORECTAL CANCER SCREENING COLORECTAL CANCER SCREENING [facility] Start: [address] COLONOGRAPHY [facility] Start: 2020 FECAL OCCULT BLOOD FECAL OCCULT BLOOD [facility] Start: 2020 Lipid panel Lipid Screening [facility] Start: 2020 LIPID SCREEN LIPID SCREEN [facility] Start: 2020 Screening for malignant neoplasm of colon [facility] Start: 2020 SIGMOIDOSCOPY SIGMOIDOSCOPY [facility] Start: 08-24-2019 Mammography MAMMOGRAM [facility] Start: 08-24-2019 Screening for malignant neoplasm of breast Mammogram Screening [facility] Start: 05-22-2017 DTaP/Tdap/Td vaccine (1 - Tdap) DTaP/Tdap/Td vaccine (1 - Tdap) [employer] Start: 05-22-2017 Urine microalbumin profile DTaP,Tdap,Td Vaccine (1 - Tdap) [facility] Start: 2015 Diabetes screen Diabetes screen [employer] Phone: Start: 2015 Lipid panel [employer] Start: 2010 Diabetes screen Diabetes screen [employer] Start: 2005 HPV TESTING HPV TESTING [facility] Start: 2005 Screening for malignant neoplasm of cervix HPV Testing [facility] Start: 1994 DTaP/Tdap/Td vaccine (1 - Tdap) DTaP/Tdap/Td vaccine (1 - Tdap) [employer] Phone: Start: 1994 Hepatitis B Vaccine (1 of 3 - 19+ 3-dose series) Hepatitis B Vaccine (1 of 3 - 19+ 3-dose series) [facility] Start: 1994 Urine microalbumin profile DTAP,TDAP,TD (1 - Tdap) [facility] Start: 1993 Anxiety Screening Anxiety Screening [facility] Start: 1993 Depression Screening Depression Screening [facility] Start: 1993 HEPATITIS C SCREENING HEPATITIS C SCREENING [facility] Start: 1993 Hepatitis C screening [facility] [employer] Start: 1993 HIV SCREENING HIV SCREENING [facility] Start: 1993 HIV screening HIV Screening [facility] Start: 1990 HIV screening HIV screen [facility] [employer] Start: 1987 [facility] Screen [facility] Start: 1981 PNEUMOCOCCAL (1 - PCV) PNEUMOCOCCAL (1 - PCV) [facility] Start: 1975 Creatinine measurement Creatinine monitoring [employer] Phone: Start: 1975 HEPATITIS B (1 of 3 - 3-dose series) HEPATITIS B (1 of 3 - 3-dose series) [facility] Start: 1975 Hepatitis C screening Hepatitis C screen [employer] Phone: Start: 1975 Potassium monitoring Potassium monitoring [employer] Phone: Start: 1975 Screening for malignant neoplasm of colon [facility] End: 05-10-2021 Cytopathology procedure, preparation of smear, genital source PAP SMEAR Lab Routine Encounter for gynecological examination without abnormal finding 1 Occurrences starting 05/10/2021 until 05/10/2021 [employer] Phone: Comment on above: 1 Occurrences starting 05/10/2021 until 05/10/2021 End: 07-17-2022 Cytopathology procedure, preparation of smear, genital source PAP SMEAR Lab Routine Encounter for gynecological examination without abnormal finding 1 Occurrences starting 07/17/2022 until 07/17/2022 [employer] Phone: Comment on above: 1 Occurrences starting 07/17/2022 until 07/17/2022 End: 07-18-2023 Cytopathology procedure, preparation of smear, genital source PAP SMEAR Lab Routine Women's annual routine gynecological examination 1 Occurrences starting 07/18/2023 until 07/18/2023 [employer] Phone: Comment on above: 1 Occurrences starting 07/18/2023 until 07/18/2023 Patient referral [facility] Work Phone: [facility] Immunizations Immunization Date Immunization Notes Care Provider Kale moise 09-26-2023 Influenza, injectabl e, Madin Анна Canine Kidney, preservative free, quadrivalent Jun Rivera [facility] 09-26-2023 influenza virus vacc ine, unspecified formulation GISSEL Locke MD Work Phone: [facility] 10-12-2021 influenza, injectabl e, quadrivalent, preservative free Jun Rivera [facility] 10-12-2021 influenza virus vacc ine, unspecified formulation GISSEL Locke MD Work Phone: [facility] 03-28-2021 COVID-19 vaccine, fu ll dose (MODERNA) GISSEL Locke MD Work Phone: [facility] 02-28-2021 COVID-19 vaccine, fu ll dose (MODERNA) GISSEL Locke MD Work Phone: [facility] 08-23-2020 Influenza, injectabl e, Madin Анна Canine Kidney, quadrivalent with preservative Jun Rivera [facility] 08-23-2020 influenza, injectabl e, quadrivalent, preservative free Jun Rivera [facility] 07-29-2019 influenza, high dose seasonal, preservative-free Jun Rivera [facility] 07-29-2019 influenza, injectabl e, quadrivalent, preservative free Jun Rivera [facility] 11-13-2018 pneumococcal Conjuga te, unspecified formulation Gurmeet Sahu MD Work Phone: [facility] Work Phone: 11-13-2018 pneumococcal polysaccharide vaccine, 23 valent Jun Rivera [facility] 10-19-2018 influenza, injectabl e, quadrivalent, preservative free Jun Yanick [facility] 08-26-2018 influenza virus vacc ine, unspecified formulation Gurmeet Sahu MD Work Phone: [facility] 08-26-2018 influenza, injectabl e, quadrivalent, preservative free Jun Yanick [facility] 08-22-2017 influenza, injectabl e, quadrivalent, preservative free Jun [facility] 08-22-2017 pneumococcal conjuga te vaccine, 13 valent Jun [facility] 07-28-2017 influenza, injectabl e, quadrivalent, preservative free [facility] 07-28-2017 pneumococcal polysaccharide vaccine, 23 valent Jun Rivera [facility] 05-21-2017 tetanus and diphther ia toxoids, adsorbed, preservative free, for adult use (5 Lf of tetanus toxoid and 2 Lf of diphtheria toxoid) [facility] 09-09-2016 influenza virus vacc ine, split virus (incl. purified surface antigen) [facility] 09-09-2016 influenza, seasonal, injectable [facility] 10-12-2015 influenza, seasonal, injectable, preservative free [facility] 09-04-2015 influenza, injectabl e, quadrivalent, preservative free [facility] 09-30-2014 influenza, seasonal, injectable, preservative free [facility] 11-14-2009 novel influenza-H1N1 -09, preservative-free, injectable [facility] Payers Date Payer Category Payer Self-pay 2021 Medicare [id number] 2021 Medicare [id number] 2016 [facility] [id number] 2007 Unknown [employer] C[employer] PPO OOS [id number] 2007-Present [phone] [address] [place] [address] PPO [id number] 2007 Unknown [id number] 1.13.15 [id number] 1975 Unknown [id number] 2.16.840.1.121922.3.57 9.2.593 1975 Unknown [id number] 2.16.840.1.808293.3.57 9.2.1286 1975 Unknown [id number] 2.16.840.1.171601.3.57 9.2.1286 1975 Unknown [id number] 2.16.840.1.083328.3.57 9.2.1286 1975 Unknown [id number] 2.16.840.1.912094.3.57 9.2.1286 1975 Unknown [id number] 2.16.840.1.939839.3.57 9.2.1286 1975 Unknown [id number] 2.16.840.1.510763.3.57 9.2.173 1975 Unknown [id number] 2.16.840.1.306636.3.57 9.2.1259 1975 Unknown [id number] 2.16.840.1.097961.3.57 9.2.1259 1975 Unknown [id number] 2.16.840.1.516263.3.57 9.2.1259 1975 Unknown [id number] 2.16.840.1.536866.3.57 9.2.1259 1975 Unknown [id number] 2.16.840.1.883326.3.57 9.2.1259 1975 Unknown [id number] 2.16.840.1.795544.3.57 9.2.1259 1975 Unknown [id number] 2.16.840.1.130893.3.57 9.2.125 1975 Unknown [id number] 2.16.840.1.846948.3.57 9.2.125 1975 Unknown [id number] 2.16.840.1.439264.3.57 9.2.1258 1975 Unknown [id number] 2.16.840.1.180920.3.57 9.2.1258 1975 Unknown [id number] 2.16.840.1.402188.3.57 9.2.1258 1975 Unknown [id number] 2.16.840.1.231770.3.57 9.2.125 1975 Unknown [id number] 2.16.840.1.402107.3.57 9.2.1258 1975 Unknown [id number] 2.16.840.1.125076.3.57 9.2.9 1975 Unknown [id number] 2.16.840.1.130998.3.57 9.2.1258 1975 Unknown [id number] 2.16.840.1.702786.3.57 9.2.125 1975 Unknown [id number] 2.16.840.1.106043.3.57 9.2.1258 1975 Unknown [id number] 2.16.840.1.719267.3.57 9.2.1258 1975 Unknown [id number] 2.16.840.1.126770.3.57 9.2.1259 1975 Unknown [id number] 2.16.840.1.846177.3.57 9.2.1259 1975 Unknown [id number] 2.16.840.1.129650.3.57 9.2.1258 1975 Unknown [id number] 2.16.840.1.113413.3.57 9.2.1258 1975 Unknown [id number] 2.16.840.1.820889.3.57 9.2.1258 1975 Unknown [id number] 2.16.840.1.663584.3.57 9.2.1258 1975 Unknown [id number] 2.16.840.1.900421.3.57 9.2.1258 1975 Unknown [id number] 2.16.840.1.889688.3.57 9.2.1258 1975 Unknown [id number] 2.16.840.1.309884.3.57 9.2.1258 1975 Unknown [id number] 2.16840.1.274665.3.57 9.2.1258 1975 Unknown [id number] 2.16.840.1.130855.3.57 9.2.1258 1975 Unknown [id number] 2.16.840.1.529628.3.57 9.2.1258 1975 Unknown [id number] 2.16.840.1.560345.3.57 9.2.1258 1975 Unknown [id number] 2.16.840.1.662554.3.57 9.2.1258 1975 Unknown [id number] 2.16.840.1.813302.3.57 9.2.1258 1975 Unknown [id number] 2.16.840.1.839120.3.57 9.2.1258 1975 Unknown [id number] 2.16.840.1.483308.3.57 9.2.1258 1975 Unknown [id number] 2.16.840.1.897962.3.57 9.2.1259 1975 Unknown [id number] 2.16.840.1.077923.3.57 9.2.1259 1975 Unknown [id number] 2.16.840.1.148960.3.57 9.2.1259 1975 Unknown [id number] 2.16.840.1.831214.3.57 9.2.1259 1975 Unknown [id number] 2.16.840.1.509778.3.57 9.2.1259 1975 Unknown [id number] 2.16.840.1.695594.3.57 9.2.1259 1975 Unknown [id number] 2.16.840.1.642814.3.57 9.2.1259 1975 Unknown [id number] 2.16.840.1.038588.3.57 9.2.1259 1959 Unknown [id number] 1.2.840.505268.1.13. 9.2.7.3.305786.315 Medicare Medicare-OP No Part B [id number] Unknown [id number] 2.16.840.1.081661.3.57 9.2.531 Unknown [id number] 2.16840.1.019504.3.57 9.2.531 Unknown [id number] 2.16840.1.837745.3.57 9.2.531 Unknown [id number] 2.16840.1.805782.3.57 9.2.531 Unknown [id number] 2.16840.1.856583.3.57 9.2.531 Unknown [id number] 2.16840.1.089488.3.57 9.2.531 Social History Date Type Detail Facility Start: 05-10-2021 End: 06-10-2023 Tobacco smoking status KYIS Never smoker [facility] Start: 05-10-2021 End: 06-10-2023 Tobacco use and exposure Never used [employer] Start: 05-10-2021 End: 07-18-2023 Alcohol intake Current non-drinker of alcohol (finding) [employer] Phone: Start: 1975 Sex Assigned At Not on file [employer] Phone: Start: 04-26-2020 End: 07-01-2024 Alcohol intake Not Asked [facility] Start: 1975 Sex Assigned At Female [facility] Start: 05-04-2022 End: 05-14-2022 Exposure to SARS-CoV-2 (event) Not sure [facility] Start: 05-15-2023 End: 08-23-2024 Sex Assigned At [facility] Start: 07-18-2023 Tobacco Comment Never [facility] Start: 05-15-2023 End: 08-23-2024 History of Social function [facility] Adult Depression Screening Assessment 0 [facility] Start: 05-13-2022 Gender identity Identifies as female gender (finding) [facility] Start: 05-13-2022 Sexual orientation Heterosexual (finding) [facility] Start: 06-01-2024 End: 09-16-2024 Alcoholic beverage intake Lifetime non-drinker (finding) [facility] Within the last year , have you been afraid of your partner or ex-partner? No [facility] Are you now , , , , never or living with a partner? [facility] How often to you hav e a drink containing alcohol? Never [facility] Do you feel stress - tense, restless, nervous, or anxious, or unable to sleep at night because your mind is troubled all the time - these days [OSQ] Not at all [facility] (I/We) worried wheth er (my/our) food would run out before (I/we) got money to buy more. Never true [facility] In the past 12 month s, was there a time when you were not able to pay the mortgage or rent on time? Yes [facility] Start: 06-09-2023 Education 21 [facility] Start: 06-09-2023 Alcohol Comment Caffeine intake: 1-2 cups per day soda [facility] Clinical Notes 10-30-2021 to 09-16-2024 Jourdan Herr, FLORESITA - 09/16/2024 9:30 AM Artur Sahu MD - 09/09/2024 3:30 PM Blanca Garcia, - 09/07/2024 9:00 AM Ezio Cisneros, PT - 09/01/2024 5:00 PM EDT Note Date & Type Note Facility 09-16-2024 History of Presen t illness Narrative Images from the original note were not included. HISTORY OF PRESENT ILLNESS: EST PT Nichelle De Leon is an 49 y.o. @ female. (R) SHOULDER (EST PT) S/P (R) SHOULDER SCOPE 05/18/24 (~4 MONTHS) S/P PHYSICAL THERAPY (7 SESSIONS) @ [facility] DOING WELL. FINISHED PHYSICAL THERAPY - CONTINUES HEP, NOTES INCREASING ROM & STRENGTH. NO PAIN MEDS. (L) SHOULDER (EST PT) RECHECK (L) SHOULDER ; S/P SA CORTISONE INJ 08/05/24 (6WKS) NO XRAYS / MRI S/P SA CORTISONE INJ 08/05/24 NOTES GOOD RELIEF FROM CORTISONE INJECTION. CONTINUES TO HAVE SOME, INTERMITTENT ACHINESS. PAIN IS ON TOP OF THE SHOULDER / SOME ANTERIOR - DENIES ANY RADIATING PAIN, NO N/T. NOTES GOOD ROM - SOME OCCASIONAL CATCHING ; DENIES ANY WEAKNESS. NO PAIN MEDS. ALLERGIES: No Known Allergies HOME MEDICATIONS: Current Outpatient Medications Medication Instructions benzonatate (TESSALON) 100 mg, Oral, 3 times daily PRN Cannabinoids (medical cannabis) 1 each, Oral esomeprazole (NEXIUM) 20 mg, Oral, Daily before breakfast, Do not open capsule. levothyroxine (SYNTHROID) 25 mcg, Oral, 2 times daily before meals liothyronine (Cytomel) 5 MCG tablet Take 1.5 tablet in AM and 1.5 tablet in PM on an empty stomach. RADHA; Sigma or Greenstone brands only naproxen (NAPROSYN) 375 mg, Oral, 2 times daily with meals Nurtec 75 mg, Oral, Daily PRN orphenadrine (NORFLEX) 100 mg, Oral, 2 times daily PRN phentermine (ADIPEX-P) 37.5 mg, Oral, Daily before breakfast primidone (MYSOLINE) 50 mg, Oral, Nightly propranolol LA (Inderal LA) 60 MG 24 hr capsule TAKE 1 CAPSULE BY MOUTH AT BEDTIME. DO NOT CRUSH, CHEW, OR SPLIT. pseudoephedrine (SUDOGEST) 30 mg, Oral, Every 6 hours temazepam (RESTORIL) 15 mg, Oral, Nightly PRN tiZANidine (Zanaflex) 4 MG tablet Take 0.5 tablets (2 mg) by mouth in the morning and at noon AND 1 tablet (4 mg) at bedtime. topiramate (TOPAMAX) 50 mg, Oral, Nightly traMADol (Ultram) 50 MG tablet TAKE 1 TABLET (50 MG) BY MOUTH EVERY 12 (TWELVE) HOURS IF NEEDED FOR SEVERE PAIN FOR UP TO 14 DAYS PHYSICAL EXAM: Shoulder Musculoskeletal Exam Inspection Right Right shoulder inspection is normal. Ecchymosis: none Peripheral edema: none Atrophy: none Masses: none Prior incision: arthroscopic portals Incision: well-healed Left Left shoulder inspection is normal. Ecchymosis: none Peripheral edema: none Atrophy: none Masses: none Palpation Right Right shoulder palpation is normal. Crepitus: no crepitus Increased warmth: none Tenderness: none Left Left shoulder palpation is normal. Crepitus: no crepitus Increased warmth: none Tenderness: none Range of Motion Right Right shoulder range of motion is normal. Active ROM: normal and no pain. Passive ROM: normal and no pain. Left Left shoulder range of motion is normal. Active ROM: normal and no pain. Passive ROM: normal and no pain. Strength Right External rotation: 5/5. Internal rotation: 5/5. Abduction: 5/5. Biceps: 5/5. Triceps: 5/5. Left External rotation: 5/5. Internal rotation: 5/5. Abduction: 5/5. Abduction is affected by pain. (mild soreness no pain) Biceps: 5/5. Triceps: 5/5. Neurovascular Right Radial pulse: normal and 2+ Capillary refill: <3 sec Axillary nerve sensory distribution: normal Left Radial pulse: normal and 2+ Capillary refill: <3 sec Axillary nerve sensory distribution: normal Scapula Right Right shoulder scapula is normal. Position: normal Winging: none Left Left shoulder scapula is normal. Position: normal Winging: none Special Tests Right Rotator Cuff Signs Neer's test: negative Villar test: negative Biceps/tamar Signs Speed's test: negative AC Joint Signs Active horizontal adduction pain: negative Left Rotator Cuff Signs Neer's test: negative Villar test: negative Biceps/tamar Signs Speed's test: negative AC Joint Signs Active horizontal adduction pain: negative General Constitutional: appears stated age Labored breathing: no Neurological: alert and oriented x3 Vitals: There is no height or weight on file to calculate BMI. Tobacco Use: Low Risk (09/16/2024) Patient History Smoking Tobacco Use: Never Smokeless Tobacco Use: Never Passive Exposure: Not on file Alcohol Use: Not At Risk (08/23/2024) AUDIT-C Frequency of Alcohol Consumption: Never Average Number of Drinks: Patient does not drink Frequency of Binge Drinking: Never IMAGING: Procedures No orders of the defined types were placed in this encounter. ASSESSMENT: ICD-10-CM 1. Acute pain of left shoulder M25.512 2. S/P arthroscopy of right shoulder Z98.890 PLAN: Pt very pleased with both shoulders. Excellent rom.. notes occasional soreness.. symmetric strength.. pt will call if symptoms develop.. pt will avoid whipping or throwing motion.. Recommend 2 year recheck Bilateral knees with xray given history of replacement and Dr. Mccormick Leaving office. Questions answered in laymen terms at the bedside. The diagnosis, home exercise plan and any ongoing restrictions/ recommendations reviewed. If unable to be reached in office, I recommend evaluation at nearest Emergency Room if any symptoms worsened or new symptoms develop for requiring urgent evaluation. documented in this encounter [facility] 09-09-2024 History of Presen t illness Narrative Images from the original note were not included. Patient ID: Nichelle De Leon is a 49 y.o. female who presents for: Pt here today to review his/hers thyroid labs and any medication changes needed. Fatigue: Present, Unchanged Weight Gain: Absent Inability to lose weight: Present, Unchanged Hair Changes: Present He/She is following the thyroid diet: Good He/She are taking medications as directed: Good He/She are exercising at least 3 days out of the week for 30 minutes or more: Good Review of Systems Constitutional: Positive for fatigue. Negative for appetite change. HENT: Negative for trouble swallowing and voice change. Cardiovascular: Negative for palpitations. Musculoskeletal: Negative for arthralgias and myalgias. Psychiatric/Behavioral: Negative for sleep disturbance. The patient is not nervous/anxious. Endocrine: Negative for cold intolerance and heat intolerance. Objective The patient is pleasant and in no acute distress The patient does not appear to have a gross neurologic deficit. The patient has good eye contact and clear speech Visit Vitals OB Status Ablation Smoking Status Never Labs from 08/05 Calculated thyroid ratio 27 No Known Allergies Current Outpatient Medications on File Prior to Visit Medication Sig Dispense Refill propranolol LA (Inderal LA) 60 MG 24 hr capsule TAKE 1 CAPSULE BY MOUTH AT BEDTIME. DO NOT CRUSH, CHEW, OR SPLIT. 90 capsule 1 benzonatate (Tessalon) 100 MG capsule Take 100 mg by mouth 3 (three) times a day as needed for cough. Cannabinoids (medical cannabis) Take 1 each by mouth esomeprazole (NexIUM) [address] capsule Take 1 capsule (20 mg) by mouth in the morning. Take before meals. Do not open capsule.. 90 capsule 3 naproxen (Naprosyn) 375 MG tablet Take 1 tablet (375 mg) by mouth in the morning and 1 tablet (375 mg) in the evening. Take with meals. 180 tablet 1 Nurtec 75 MG tablet dispersible Take 75 mg by mouth Daily as needed (Migraine) orphenadrine (Norflex) 100 MG 12 hr tablet Take 1 tablet (100 mg) by mouth 2 (two) times a day as needed for muscle spasms 180 tablet 1 phentermine (Adipex-P) 37.5 MG tablet Take 37.5 mg by mouth in the morning. Take before meals. primidone (Mysoline) 50 MG tablet Take 1 tablet (50 mg) by mouth at bedtime 90 tablet 3 pseudoephedrine (SudoGest) 30 MG tablet Take 30 mg by mouth every 6 (six) hours. temazepam (Restoril) 15 MG capsule Take 1 capsule (15 mg) by mouth as needed at bedtime for sleep 30 capsule 2 tiZANidine (Zanaflex) 4 MG tablet Take 0.5 tablets (2 mg) by mouth in the morning and at noon AND 1 tablet (4 mg) at bedtime. 180 tablet 3 topiramate (Topamax) 25 MG tablet Take 2 tablets (50 mg) by mouth at bedtime 180 tablet 3 traMADol (Ultram) 50 MG tablet TAKE 1 TABLET (50 MG) BY MOUTH EVERY 12 (TWELVE) HOURS IF NEEDED FOR SEVERE PAIN FOR UP TO 14 DAYS No current facility-administered medications on file prior to visit. 1. Postsurgical hypothyroidism (CMS/HCC) (Primary) In prescribing an adjustment to their current medication, consideration of the following encompasses moderate decision making; the current prescriptions and supplements, the current allergies and medication intolerances, the current medical conditions, and potential drug interactions. Risks, benefits, and reason for adjusting their current medication were discussed. The patient was given a chance to ask questions today and all questions were answered. The patient is to contact us if any other questions arise or if any problems occur with the adjustment in their medication. - levothyroxine (Synthroid) 50 MCG tablet; Take 0.5 tablets (25 mcg) by mouth in the morning and 0.5 tablets (25 mcg) in the evening. Take before meals. Dispense: 90 tablet; Refill: 0 - T3, free; Future - T4, free; Future 2. Central hypothyroidism (CMS/HCC) This is a complex chronic problem, unstable, not to goal; managment requires moderate decision making I reviewed diet and exercise with the patient. I discussed the patient's current psychosocial and physical condition and the stress impact upon them. I reviewed the multiple unique laboratories and explained the results to the patient. The patient has been re-educated concerning the above diagnoses and that the treatment for some of these may not be considered the standard of care, including TSH suppression when utilized. The patient has been re-educated and instructed concerning medication timing, diet, exercise, and stress reduction as appropriate. I reviewed the patient's current prescriptions and discussed the possibilities of medication renewals, adjustments, new medication start, or stop medication as appropriate The patient has been instructed to follow up and bring a diet and exercise log, and the importance of follow up and compliance. The patient was given a chance to ask questions today and all questions were answered. The patient is to contact us if any other questions arise or if any problems occur. - T3, reverse; Future - T3; Future - T3, free; Future - T4, free; Future - T3, reverse; Future - T3; Future - T3, free; Future - T4, free; Future - T3, reverse - T3 - T3, free - T4, free 3. Euthyroid sick syndrome Chronic problem that is unstable. Her previous prescription desiccated thyroid does now low us to adjust between T4 and T3. After discussion we have mutually agreed to a trial of treatment with levothyroxine and liothyronine. I did calculate exactly how much T4 and T3 she was getting with her [employer] thyroid and then made some adjustments during the conversion. - liothyronine (Cytomel) 5 MCG tablet; Take 1.5 tablet in AM and 1.5 tablet in PM on an empty stomach. RADHA; Blip or Carestream brands only Dispense: 270 tablet; Refill: 0 - T3, reverse; Future - T3; Future - T3, free; Future 4. Chronic fatigue Chronic problem, unstable, complex in nature with moderate decision making. I discussed with the patient or their entry level account representative, their fatigue issues. We discussed how this is either not improved or not inadequately addressed. We discussed how this is almost always a multifactorial problem. We discussed that the patient will almost certainly need to continue to make lifestyle changes including diet, sleep, exercise, and stress management as appropriate. We further discussed how we will continue to search for refinements in their current treatments or evaluation for further disease processes and then support or treat them as appropriate. We discussed how we can frequently improve the symptoms, but may not be able to completely cure or resolve the issue. The patient was given a chance to ask questions and all questions were answered. - T3, reverse; Future - T3; Future - T3, free; Future - T4, free; Future - T3, reverse; Future - T3; Future - T3, free; Future - T4, free; Future - T3, reverse - T3 - T3, free - T4, free 5. Non morbid obesity due to excess calories Encouraged lifestyle changes as above documented in this encounter [facility] 09-07-2024 History of Presen t illness Narrative HISTORY OF PRESENT ILLNESS: Nichelle De Leon is an 49 y.o. @ female. Follow up B/L TKA Left knee: 5 1/2 yrs LT TKA (DOS 02/10/19) She is doing well. Pt ambulating well unassisted. Decreased sensation in the LT lateral knee and foot. Denies limp, notes occas stiffness. Pt is pleased with outcome. . Right knee: 6 years s/p RT TKA dos (08/26/18). Denies any problems. Very pleased with the outcome. Walking well w/o assistance. Denies limp. Notes decreased sensation over lateral knee. Pt is pleased with outcome. MEDICATION: Current Outpatient Medications on File Prior to Visit Medication Sig Dispense Refill propranolol LA (Inderal LA) 60 MG 24 hr capsule TAKE 1 CAPSULE BY MOUTH AT BEDTIME. DO NOT CRUSH, CHEW, OR SPLIT. 90 capsule 1 benzonatate (Tessalon) 100 MG capsule Take 100 mg by mouth 3 (three) times a day as needed for cough. Cannabinoids (medical cannabis) Take 1 each by mouth esomeprazole (NexIUM) [address] capsule Take 1 capsule (20 mg) by mouth in the morning. Take before meals. Do not open capsule.. 90 capsule 3 liothyronine (Cytomel) 5 MCG tablet Take 1 tablet in AM and 1 tablet in PM on an empty stomach. RADHA; Blip or Carestream brands only 60 tablet 0 naproxen (Naprosyn) 375 MG tablet Take 1 tablet (375 mg) by mouth in the morning and 1 tablet (375 mg) in the evening. Take with meals. 180 tablet 1 Nurtec 75 MG tablet dispersible Take 75 mg by mouth Daily as needed (Migraine) orphenadrine (Norflex) 100 MG 12 hr tablet Take 1 tablet (100 mg) by mouth 2 (two) times a day as needed for muscle spasms 180 tablet 1 phentermine (Adipex-P) 37.5 MG tablet Take 37.5 mg by mouth in the morning. Take before meals. primidone (Mysoline) 50 MG tablet Take 1 tablet (50 mg) by mouth at bedtime 90 tablet 3 pseudoephedrine (SudoGest) 30 MG tablet Take 30 mg by mouth every 6 (six) hours. temazepam (Restoril) 15 MG capsule Take 1 capsule (15 mg) by mouth as needed at bedtime for sleep 30 capsule 2 thyroid (Majestic Thyroid) 30 MG tablet Take 1 tablet (30 mg) by mouth in the morning and 1 tablet (30 mg) in the evening. Take before meals. 180 tablet 1 tiZANidine (Zanaflex) 4 MG tablet Take 0.5 tablets (2 mg) by mouth in the morning and at noon AND 1 tablet (4 mg) at bedtime. 180 tablet 3 topiramate (Topamax) 25 MG tablet Take 2 tablets (50 mg) by mouth at bedtime 180 tablet 3 traMADol (Ultram) 50 MG tablet TAKE 1 TABLET (50 MG) BY MOUTH EVERY 12 (TWELVE) HOURS IF NEEDED FOR SEVERE PAIN FOR UP TO 14 DAYS No current facility-administered medications on file prior to visit. MEDICAL HISTORY: Past Medical History: Diagnosis Date BMI 38.0-38.9,adult Brachial neuritis Carpal tunnel syndrome Displacement of cervical intervertebral disc without myelopathy Dysmenorrhea 2010 Dysphagia 2010 Euthyroid sick syndrome H/O thyroidectomy ([facility]) Headache 1989 Headache, tension-type 1992 History of tracheostomy Hypertension ([facility]) 2019 Insomnia 2000 Migraine ([facility]) 1999 Morbid (severe) obesity due to excess calories ([facility]) Neuropathy Numbness 2010 Obstructive sleep apnea Plantar fasciitis Post-surgical hypothyroidism ([facility]) Primary osteoarthritis of left knee Primary osteoarthritis of right knee Restless leg syndrome 2011 Thyroid cancer ([facility]) Tremor 2010 Visual impairment Vocal cord paralysis ALLERGIES: No Known Allergies VITALS: Visit Vitals OB Status Ablation Smoking Status Never PHYSICAL EXAM: Ortho Exam B/L KNEE Incisions well healed Ambulating without assisted devices No instability ROM 0-120 IMAGING: XR knee 1 or 2 views left Imaging Result: September 07, 2004 x-rays AP weight-bearing bilateral knees and lateral left knee demonstrate cemented knee replacements bilaterally. There is good position alignment there are no signs of loosening fracture or failure. Impression: Stable appearance of knee replacements Alireza Garcia D.O. ASSESSMENT: ICD-10-CM 1. S/P total knee replacement, left Z96.652 2. S/P total knee replacement, right Z96.651 3. Arthritis of left knee M17.12 XR knee 1 or 2 views left 4. Arthritis of right knee M17.11 PLAN: Follow up in as needed, any issues/concerns follow up sooner. Dr. Garcia obtained history and examined the patient, I am acting as scribe for Dr. Garcia/olga Garcia D.O. documented in this encounter [facility] 09-01-2024 History of Presen t illness Narrative Physical Therapy Treatment Visit Patient Name: Nichelle De Leon Today's Date: 09/01/2024 Encounter Diagnoses Name Primary? S/P arthroscopy of right shoulder Yes Acute pain of right shoulder Biceps tendonitis on right Visit number: 6 Timed Code Treatment Minutes: 45 minutes Total Treatment Time: 45 minutes Time In: 1650 Time Out: 1539 History: Underwent surgery for right RCR on May 18. ROM was full and pt did not require formal PT. Pt is now 12 weeks post op and OK for strengthening of right shoulder. Pt states right shoulder does fatigue quickly. ROM of right shoulder remains full. Pt states she has recently been having pain in left shoulder due to overuse. Cannot sleep on either right or left side. Precautions: Bilateral TKA, right RCR, universal Subjective: Pt states she was a little sore following last session but not too bad. Pain today is very minimal. Will RTD 09/16/24. Pain: 12/03 Objective: PT Evaluation (08/11/2024) Right SHOULDER AROM: 161 degrees flexion, 160 degrees abduction, 78 degrees ER, IR to T/L junction Strength: 4/5 flexion, 4-/5 abduction and ER, 4 to 4+/5 IR; empty can Palpation: Mild to moderate tenderness right UT region Special Test: min discomfort with Neer's and Villar Bert Treatment: Education: HEP education with demonstration, Educated on Eval Findings and POC Manual Therapy: () Passive ROM, Joint mobilization, Soft Tissue Mobilization, Myofascial Release, Muscle Energy Technique, Neural Mobilization, Myofascial Cupping, Dry Needling, IASTM, and Scar mobilization as needed. MFD with one cup sliding to bilateral UT's and rhomboids. Static cup placement to bilateral UT's in sitting. Therapeutic Exercise: (45 minutes) Strength, Endurance, Flexibility, ROM, HEP, Neural Mobilization, Power, and Core Stability as needed. Progressed resistance with ex this date. Therapeutic Activity: Exercises to improve dynamic activities, functional tasks, functional mobility to return to prior activity level as needed. Neuromuscular re-education: Balance Training, Muscle Facilitation, Dynamic Stability, Core Stabilization, and Blood Flow Restriction Training (BFRT) as needed. Modalities: CP (declined). Heat, Ice, Electrical Stimulation, Ultrasound, Cervical Mechanical Traction, Lumbar Mechanical Traction, Iontophoresis, and Fluidotherapy as needed. Assessment: Pt has completed 6 PT sessions for right shoulder strengthening. Tolerate strengthening ex without complaints of pain. Pt able to actively IR right UE to mid thoracic region. Strength right middle trap 4-/5, lower trap 3+/5. Will continue to progress as able. Outcome Measure: Upper Extremity Functional Index (UEFI): 55/80 Rehab Diagnosis: right UE weakness Short Term Goal: To be met in 2 weeks Goal 1: Pt to be instructed in home exercise program. Chargeback Specialist Goals: To be met in 10 weeks Goal 1: Pt to report independence and compliance with home program. Goal 2: Pt to achieve 4+ to 5/5 strength right shoulder in all planes to assist with functional tasks and lifting. Goal 3: Pt to score no less than 65/80 on UEFI indicating improved QOL. Goal 4: Pt to achieve 4 to 4+/5 strength right lower and middle traps to assist with functional tasks. Goal 5: Pt to present with negative shoulder impingement testing. Pt will benefit from skilled PT for 1-2x/week from 08/11/2024 to 10/20/2024 to address the above impairments. I hereby deem this POC medically necessary. Please sign below. Date: documented in this encounter [facility] 07-01-2024 History of Presen t illness Narrative Radiation Oncology - Follow Up Note PATIENT NAME: Nichelle De Leon PATIENT Diagnosis: Thyroid carcinoma, micropapillary. Prior treatment: Thyroidectomy and elected observation with no I-131 therapy. INTERVAL HISTORY: Doing well. Denies any new problems. No neck pain. No dysphagia. Overall feeling fairly good without significant limitations. Recovering very well from Arthroscopic right shoulder surgery earlier this year. LABORATORY: Latest Reference Range & Units 05/03/24 09:40 Thyroglobulin, LC-MS/MS 1.3 - 31.8 ng/mL <0.5 (L) (L): Data is abnormally low Latest Reference Range & Units 04/20/19 09:19 04/11/20 09:33 04/26/21 09:57 04/05/22 10:18 05/06/23 09:37 Thyroglobulin Ab <14.4 IU/mL 15.8 (H) 12.2 9.9 Thyroglobulin 1.6 - 59.9 ng/mL 0.2 (L) <0.2 (L) 0.5 (L) 0.7 (L) Thyroglobulin Ab, Serum <4.0 IU/mL <0.9 Thyroglobulin, Serum 1.6 - 50.0 ng/mL 0.1 (L) ALLERGIES No Known Allergies MEDICATIONS: esomeprazole (NEXIUM) 20 mg capsule Take 20 mg by mouth. liothyronine (CYTOMEL) 5 mcg tablet Take 1 tablet in AM and 1 tablet in PM on an empty stomach. RADHA; [employer] or [employer] brands only primidone (MYSOLINE) 50 mg tablet Take 12.5 mg by mouth. NURTEC ODT 75 mg disintegrating tablet TAKE 75 MG BY MOUTH NEEDED AT BEDTIME (MIGRAINE). temazepam (RESTORIL) 15 mg Take 15 mg by mouth. topiramate (TOPAMAX) 25 mg capsule Take 25 mg by mouth. orphenadrine ER (NORFLEX) 100 mg tablet Take 100 mg by mouth two times a day. losartan (COZAAR) 50 mg tablet once daily. ARMOUR THYROID 15 mg tablet Take 30 mg by mouth two times a day. 45mg q a.m. and 30mg q hs NAPROXEN SODIUM (ALEVE ORAL) Take by mouth as needed. Phentermine HCl 37.5 mg tablet Take 37.5 mg by mouth. omeprazole (PRILOSEC) 20 mg capsule Take 20 mg by mouth once daily. baclofen (LIORESAL) 10 mg tablet Take 10 mg by mouth as needed. REVIEW OF SYSTEMS: GENERAL: Negative for weight loss, fevers, chills, or night sweats. HEENT: Negative for sudden vision or hearing changes. NECK: Negative for masses in the neck. RESPIRATORY: Negative for cough or shortness of breath. CARDIAC: Negative for chest pain, palpitations, murmurs, or syncopal episodes. GI: Negative for nausea, vomiting, diarrhea, constipation, blood per rectum, or melena. : Negative for dysuria, hematuria, urgency, frequency or incontinence. MUSCULOSKELETAL: Negative for limitations in movement, pain, or swelling. NEURO: Negative for dizziness, headache, weakness or numbness. HEMATOLOGIC: Negative for bleeding or easy bruising. SKIN: Negative for rashes or other skin changes. PHYSICAL EXAM: VS: BP 135/87 Pulse 82 Temp 36.9 C (98.5 F) Resp 16 Wt 73.8 kg (162 lb 11.2 oz) SpO2 99% BMI 32.31 kg/m KPS: 100 General Appearance: Alert and oriented. No acute distress. Neck: Normal ROM. No palpable cervical or supraclavicular adenopathy. Skin: No rashes noted Lymphatics: No palpable lymphadenopathy. ASSESSMENT AND PLAN: Thyroid carcinoma, micropapillary. Prior treatment: Thyroidectomy and elected observation with no I-131 therapy. Doing well. No clinical evidence of suspicious findings. Thyroglobulin undetectable. Continue routine surveillance. Signed by: Kristi Locke MD cc: Gurmeet Sahu MD [address] [place] [id number] documented in this encounter [facility] 07-01-2024 Note HNO ID: [id number] Author: Kristi LOCKE MD Service: ? Author Type: Physician Type: Progress Notes Filed: 07/09/2024 12:19 Note Text: Radiation Oncology - Follow Up Note PATIENT NAME: Nichelle De Leon PATIENT Diagnosis: Thyroid carcinoma, micropapillary. Prior treatment: Thyroidectomy and elected observation with no I-131 therapy. INTERVAL HISTORY: Doing well. Denies any new problems. No neck pain. No dysphagia. Overall feeling fairly good without significant limitations. Recovering very well from Arthroscopic right shoulder surgery earlier this year. LABORATORY: Latest Reference Range AND Units 05/03/24 09:40 Thyroglobulin, LC-MS/MS 1.3 - 31.8 ng/mL <0.5 (L) (L): Data is abnormally low Latest Reference Range AND Units 04/20/19 09:19 04/11/20 09:33 04/26/21 09:57 04/05/22 10:18 05/06/23 09:37 Thyroglobulin Ab <14.4 IU/mL 15.8 (H) 12.2 9.9 Thyroglobulin 1.6 - 59.9 ng/mL 0.2 (L) <0.2 (L) 0.5 (L) 0.7 (L) Thyroglobulin Ab, Serum <4.0 IU/mL <0.9 Thyroglobulin, Serum 1.6 - 50.0 ng/mL 0.1 (L) ALLERGIES No Known Allergies MEDICATIONS: esomeprazole (NEXIUM) 20 mg capsule Take 20 mg by mouth. liothyronine (CYTOMEL) 5 mcg tablet Take 1 tablet in AM and 1 tablet in PM on an empty stomach. RADHA; [employer] or [employer] brands only primidone (MYSOLINE) 50 mg tablet Take 12.5 mg by mouth. NURTEC ODT 75 mg disintegrating tablet TAKE 75 MG BY MOUTH NEEDED AT BEDTIME (MIGRAINE). temazepam (RESTORIL) 15 mg Take 15 mg by mouth. topiramate (TOPAMAX) 25 mg capsule Take 25 mg by mouth. orphenadrine ER (NORFLEX) 100 mg tablet Take 100 mg by mouth two times a day. losartan (COZAAR) 50 mg tablet once daily. ARMOUR THYROID 15 mg tablet Take 30 mg by mouth two times a day. 45mg q a.m. and 30mg q hs NAPROXEN SODIUM (ALEVE ORAL) Take by mouth as needed. Phentermine HCl 37.5 mg tablet Take 37.5 mg by mouth. omeprazole (PRILOSEC) 20 mg capsule Take 20 mg by mouth once daily. baclofen (LIORESAL) 10 mg tablet Take 10 mg by mouth as needed. REVIEW OF SYSTEMS: GENERAL: Negative for weight loss, fevers, chills, or night sweats. HEENT: Negative for sudden vision or hearing changes. NECK: Negative for masses in the neck. RESPIRATORY: Negative for cough or shortness of breath. CARDIAC: Negative for chest pain, palpitations, murmurs, or syncopal episodes. GI: Negative for nausea, vomiting, diarrhea, constipation, blood per rectum, or melena. : Negative for dysuria, hematuria, urgency, frequency or incontinence. MUSCULOSKELETAL: Negative for limitations in movement, pain, or swelling. NEURO: Negative for dizziness, headache, weakness or numbness. HEMATOLOGIC: Negative for bleeding or easy bruising. SKIN: Negative for rashes or other skin changes. PHYSICAL EXAM: VS: BP 135/87 Pulse 82 Temp 36.9 ?C (98.5 ?F) Resp 16 Wt 73.8 kg (162 lb 11.2 oz) SpO2 99% BMI 32.31 kg/m? KPS: 100 General Appearance: Alert and oriented. No acute distress. Neck: Normal ROM. No palpable cervical or supraclavicular adenopathy. Skin: No rashes noted Lymphatics: No palpable lymphadenopathy. ASSESSMENT AND PLAN: Thyroid carcinoma, micropapillary. Prior treatment: Thyroidectomy and elected observation with no I-131 therapy. Doing well. No clinical evidence of suspicious findings. Thyroglobulin undetectable. Continue routine surveillance. Signed by: Kristi Locke MD cc: Gurmeet Sahu MD [facility] [place] [id number] [facility] 04-28-2024 Telephone encounter Note Please sign pended thyroglobulin order for upcoming follow up. Quoc Brian RN [facility] 04-28-2024 Miscellaneous Notes Please sign pended thyroglobulin order for upcoming follow up. Quoc Brian RN documented in this encounter [facility] 01-01-2024 Evaluation note Encounter Date Diagnosis Assessment Notes Dec, Cervical pain (ICD-10 - M54.2) Independently reviewed the x-ray of the cervical spine showing good bony fusion at C5-6 loss of disc height at C4-5 and C6-7. I also independently reviewed the MRI of the cervical spine showing mild to moderate stenosis at C4-5 and C6-7, mild stenosis at C3-4. Talking to the patient she really has no new symptoms, some of her symptoms have gotten worse since her initial injury. I do not think she is a surgical candidate at this time. But I will defer to Dr. Trevino. I will send her for surgical consultation. 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 She attributes this to a recent right intra-articular hip joint injection. We will continue to monitor her symptoms in this region and proceed with repeat treatment as needed. Anatomy discussed in detail with patient in regards to patients condition. Overall, patient believes their hip pain is reasonably well controlled and she is in agreement with our treatment plan. Oct, Shoulder pain (ICD-1 0 - M25.519) Patients primary complaint today is persistent bilateral shoulder pain. Previous imaging results show evidence of degenerative changes, consistent with her symptoms. Based on location of pain and exam findings, patient is a candidate for bilateral intra-articular shoulder joint injections which we will proceed with today in the office. Risks and benefits of procedure explained to patient; patient verbalizes understanding. Patient tolerated well. Oct, Trochanteric bursiti s of right hip (ICD-10 - M70.61) Tolerable following a recent right trochanteric bursa injection. We will continue to monitor. Oct, Chronic pain (ICD-10 - G89.29) Oct, Other Above note writ ten by Rohit Leon MA, [employer] Front Office Developer. Edited and approved by Dr. Ashkan Brown MD. We will continue to monitor this region. Tolerable at this time following recent bilateral sacroiliac joint injections. We will continue to monitor and proceed with repeat treatment to the area as needed. Anatomy of spine discussed in detail with patient in regards to patients condition. Overall, patient believes their sacroiliac joint pain is reasonably well controlled and she is in agreement with our treatment plan. [facility] Other 11-08-2023 Evaluation note* Encounter Date Diagnosis Assessment Notes Treatment Notes Treatment Clinical Notes Sep, Osteoarthritis of right hip (ICD-10 - M16.11) Patients primary complaint today is persistent right hip and groin pain. Right hip x-rays were up dated and reviewed personally, minor degenerative changes without acute findings. It was explained that these would be reviewed by radiology as well. Based on location of pain and exam findings, patient is a candidate for a right intra-articular hip joint injection which we will proceed with. Risks and benefits of procedure explained to patient; patient verbalizes understanding. Sep, Trochanteric bursiti s of right hip (ICD-10 - M70.61) Patient is also volcalizing complaints of pain over the outide of the right hip. He shows notable tenderness over the trochanteric bursa upon exam. Based on location of pain and exam findings, patient is a candidate for a right trochanteric bursa injection which we will proceed with in conjunction with an intra-articular hip joint injection. Risks and benefits of procedure explained to patient; patient verbalizes understanding. Sep, Sacroiliitis (ICD-10 - M46.1) Tolerable at this time following recent bilateral sacroiliac joint injections. We will continue to monitor and proceed with repeat treatment to the area as needed. Anatomy of spine discussed in detail with patient in regards to patients condition. Overall, patient believes their sacroiliac joint pain is reasonably well controlled and she is in agreement with our treatment plan. Sep, Pain in right shoulder (ICD-10 - M25.511) We will continue to monitor this region. Sep, Chronic pain (ICD-10 - G89.29) Sep, Other Above note writ ten by Rohit Leon MA, [employer] Front Office Developer. Edited and approved by Dr. Ashkan Brown MD. [facility] Other 10-11-2023 Evaluation note* Encounter Date Diagnosis Assessment Notes Treatment Notes Treatment Clinical Notes Aug, Chronic pain (ICD-10 - G89.29) Aug, Cervical muscle pain (ICD-10 - M54.2) We discussed treatment options for the patient's persistent cervical muscle pain. Patient shows notable muscle tenderness upon exam. Given location of pain and exam findings, patient is a candidate for cervical trigger point injections, which we will proceed with today in the office. Risks and benefits of procedure explained to patient; patient verbalizes understanding. Patient tolerated this well. Anatomy of spine discussed in detail with patient in regard to patients condition. Aug, Sacroiliitis (ICD-10 - M46.1) We discussed treatment options for the patient's persistent low bilateral lumbar/gluteal pain. She shows notable pain consistent with the sacroiliac joint. She has failed multiple previous conservative treatment options. Given location of pain and exam findings, patient is a candidate for bilateral sacroiliac joint injection, which we will proceed with. Risks and benefits of procedure explained to patient; patient verbalizes understanding. Anatomy of spine discussed in detail with patient in regard to patients condition. Aug, Pain in right shoulder (ICD-10 - M25.511) Patient provided with shoulder exercises today. We will continue to monitor this region. Aug, Other Above note writ ten by Bam Luna LPN, [employer] Front Office Developer. Edited and approved by Dr. Ashkan Brown MD. [facility] Other 09-13-2023 Evaluation note* Encounter Date Diagnosis Assessment Notes Treatment Notes Treatment Clinical Notes Jul, Cervical pain (ICD-10 - M54.2) Patient is voicing complaints of progressing cervical pain. She shows notable muscle tenderness over the paraspinal muscles upon exam. We discussed the possible benefit of trigger point injections however at this time we will hold off until she has completed her additional testing with neurosurgery. Anatomy of spine discussed in detail with patient in regards to patients condition. We will follow up with her as needed. Jul, Tremors of nervous system (ICD-10 - R25.1) Patients primary complaint today is tremors throughout her bilateral upper extremities and hands. She was encourgaed to continue following up with neurology. Jul, Chronic pain (ICD-10 - G89.29) Jul, Pain in right shoulder (ICD-10 - M25.511) Patient is voicing some complaints of bilateral shoulder pain today. We discussed treatment options for the patient's persistent shoulder pain. We will obtain updated imaging today and call the patient with any significant findings. Jul, Pain in left shoulder (ICD-10 - M25.512) Jul, Other Above note writ ten by Bam Luna LPN, [employer] Front Office Developer. Edited and approved by Dr. Ashkan Brown MD. [facility] Other 07-31-2023 Evaluation note* Encounter Date Diagnosis Assessment Notes Treatment Notes Treatment Clinical Notes May, Cervical pain (ICD-10 - M54.2) Patient is voicing complaints of progressing cervical pain. Updated cervical xrays were obtained today in office. Patient has been instructed results will be discussed at the patients follow up unless there are acute or urgent findings. She reports tremors throughout her bilateral upper extremities and hands. She shows notable muscle tenderness over the paraspinal muscles upon exam. We discussed the possible benefit of trigger point injections which we may consider in the future if needed. May, Tremors of nervous system (ICD-10 - R25.1) Patients primary complaint today is tremors throughout her bilateral upper extremities and hands. I will refer the patient to neurology for further evaluation of her symptoms. May, Chronic pain (ICD-10 - G89.29) May, Other Above note writ ten by Rohit Leon MA, [employer] Front Office Developer. Edited and approved by Dr. Ashkan Brown MD. [facility] Other 06-22-2023 History of Present illness Narrative* G Christofer Locke MD - 05/15/2023 3:26 PM EDT Diagnosis: Thyroid carcinoma, micropapillary. Prior treatment: Thyroidectomy and elected observation with no I-131 therapy. History of present illness: Doing well. Denies new problems. No dysphagia neck pain or otalgia. Intermittent hoarseness stable. Denies dyspnea. Labs: Latest Reference Range & Units 04/20/19 09:19 04/11/20 09:33 04/26/21 09:57 04/05/22 10:18 05/06/23 09:37 Thyroglobulin Ab <14.4 IU/mL 15.8 (H) 12.2 9.9 Thyroglobulin 1.6 - 59.9 ng/mL 0.2 (L) <0.2 (L) 0.5 (L) 0.7 (L) Thyroglobulin Ab, Serum <4.0 IU/mL <0.9 Thyroglobulin, Serum 1.6 - 50.0 ng/mL 0.1 (L) (H): Data is abnormally high (L): Data is abnormally low Ref. Range 10/14/2016 15:11 04/15/2017 14:11 Thyroglobulin Ab Latest Ref Range: <14.4 IU/mL 11.7 Thyroglobulin Latest Ref Range: 1.6 - 59.9 ng/mL 0.5 (L) <0.2 (L) Ref Range & Units 1 mo ago (04/05/22) 1 yr ago (04/26/21) 2 yr ago (04/11/20) 3 yr ago (04/20/19) 3 yr ago (10/13/18) 4 yr ago (04/22/18) 5 yr ago (04/15/17) Thyroglobulin 1.6 - 59.9 ng/mL 0.7 Low 0.5 Low CM <0.2 Low CM 0.2 Low CM <0.2 Low CM 0.2 Low CM <0.2 LowR, CM Component Ref Range & Units 1 mo ago 1 yr ago 2 yr ago 4 yr ago 5 yr ago 6 yr ago Thyroglobulin Ab <14.4 IU/mL 9.9 12.2 15.8 High 93.8 High 11.7 12.0 Review of Systems: PAIN ASSESSMENT: Negative for pain, history of chronic pain, or current treatment for a chronic pain condition. GENERAL: No weight loss, malaise or fevers. RESPIRATORY: Negative for cough, hemoptysis, wheezing, COPD, dyspnea or shortness of breath CARDIOVASCULAR: Negative for chest pain, leg swelling, hypertension, CHF or palpitations MUSCULOSKELETAL: Negative for joint pain or swelling, back pain or muscle pain SKIN: Negative for lesions, rash, and itching. NEURO: No history of headaches, syncope, paralysis, seizures or tremors The remainder of the review of systems is negative. PHYSICAL EXAM: 05/15/23 1506 BP: 141/91 Pulse: 89 Resp: 18 Temp: 36.4 C (97.6 F) TempSrc: Temporal SpO2: 99% Weight: 73.7 kg (162 lb 6.4 oz) KPS:100 General Appearance: Well appearing, alert, in no acute distress, well-hydrated, well nourished.. Skin: Skin color, texture, turgor normal, no suspicious rashes or lesions. Neck: Supple, no adenopathy or masses Neurologic: Gait normal. Cranial nerves II through XII intact. No focal deficits. Lymph Nodes: No cervical lymphadenopathy and No supraclavicular lymphadenopathy. IMPRESSION: Thyroid carcinoma with prior thyroidectomy and no I-131 ablative treatment. Overall continues to do well. Thyroglobulin very low, no detectable antithyroglobulin antibody level. Recommend repeat thyroglobulin and follow-up in 1 year. Kristi Locke [facility] Miscellaneous Notes* Telephone Encounter - Mars Braswell MD - 04/30/2023 8:29 AM EDT Signed -thanks! Mars * Telephone Encounter - Nichelle Johnson RN - 04/30/2023 8:22 AM EDT Please sign pended labs for upcoming visit. Thanks! Nichelle Johnson RN documented in this [facility]05-12-2023 Evaluation note* Encounter Date Diagnosis Assessment Notes Treatment Notes Treatment Clinical Notes March, Right elbow pain (ICD-10 - M25.521) March, Cubital tunnel syndrome on right (ICD-10 - G56.21) March, Other Nichelle returns to review EMG results. She continues to have numbness and tingling to the right upper extremity. EMG shows that the origin of symptoms are secondary to cervical radiculopathy at C-6. Patient is also seen by Dr. Brown in pain management for treatment of lumbar radiculopathy. I recommend she return to Dr. Brown for epidural injection as treatment. She may follow up with Dr. Brown. Patient voiced understanding and is agreeable to treatment plan. [facility] Other 05-10-2023 Evaluation note* Encounter Date Diagnosis Assessment Notes Treatment Notes Treatment Clinical Notes March, Sacroiliitis (ICD-10 - M46.1) Patient is voicing minimal complaints of pain at this time. She attributes this to a recent right sacroiliac joint injection. We will continue to monitor her symptoms in this region. Anatomy of spine discussed in detail with patient in regard to patients condition. Overall, patient believes their pain is reasonably well controlled, and she is in agreement with our treatment plan. We will follow up with her in four months, sooner if needed. March, Osteoarthritis of lumbosacral spine without myelopathy (ICD-10 - M47.817) Patient denies any complaints of axial back pain at this time following bilateral lumbar facet radiofrequency ablations. We will continue to monitor and proceed with future treatment to the area as needed. Anatomy of spine discussed in detail with patient in regards to patients condition. Overall, patient believes their pain is reasonably well controlled in this area and she is in agreement with our treatment plan. March, Right hip pain (ICD-10 - M25.551) March, Chronic pain (ICD-10 - G89.29) March, Other Above note writ ten by Bam Luna LPN, [employer] Front Office Developer. Edited and approved by Dr. Ahskan Brown MD. [facility] Other 04-25-2023 Evaluation note* Encounter Date Diagnosis Assessment Notes Treatment Notes Treatment Clinical Notes Feb, Right elbow pain (ICD-10 - M25.521) Feb, Cubital tunnel syndrome on right (ICD-10 - G56.21) This appears to be cubital tunnel syndrome. We discussed the cause of this condition and the treatment options. We also discussed the use of towl night splints and occupational therapy can help with symptoms. We also discussed the option of surgical release which can eliminate the problem. Discussed with patient we will obtain an EMG. [facility] Other 04-19-2023 Evaluation note* Encounter Date Diagnosis Assessment Notes Treatment Notes Treatment Clinical Notes Feb, Sacroiliitis (ICD-10 - M46.1) Patients primary complaint today is right low lumbar and gluteal pain, consistent with previous complaints in the sacroiliac region. Based on previous positive results, as well as location of pain and exam findings, patient is a candidate for repeat right sacroiliac joint injections which we will proceed with. Risks and benefits of procedure explained to patient; patient verbalizes understanding. Anatomy of spine discussed in detail with patient in regards to patients condition. Feb, Osteoarthritis of lumbosacral spine without myelopathy (ICD-10 - M47.817) Patient denies any complaints of axial back pain at this time following bilateral lumbar facet radiofrequency ablations. We will continue to monitor and proceed with future treatment to the area as needed. Anatomy of spine discussed in detail with patient in regards to patients condition. Overall, patient believes their pain is reasonably well controlled in this area and she is in agreement with our treatment plan. Feb, Right hip pain (ICD-10 - M25.551) Given the patients complaints of intermittent right hip and groin pain I will obtain an xray of her right hip for further evaluation. X-rays were reviewed personally, minimal degenerative changes without acute findings. It was explained that these would be reviewed by radiology as well. Feb, Chronic pain (ICD-10 - G89.29) Feb, Other Above note writ ten by Rohit Leon MA, [employer] Front Office Developer. Edited and approved by Dr. Ashkan Brown MD. [facility] Other 03-16-2023 Evaluation note* Encounter Date Diagnosis Assessment Notes Treatment Notes Treatment Clinical Notes Jan, Other low back pain (ICD-10 - M54.59) Patient appears to continue benefitting from prevous sacroiliac joint injections. We will continue to monitor and proceed with future treatment in the area as needed. Jan, Osteoarthritis of lumbosacral spine without myelopathy (ICD-10 - M47.817) Patient is voicing complaints of returning axial back pain. Based on previous positive results, as well as location of pain and exam findings, patient is a candidate for repeat bilateral lumbar facet radiofrequency ablations which we will proceed with. Risks and benefits of procedure explained to patient; patient verbalizes understanding. Anatomy of spine discussed in detail with patient in regard to patients condition. Jan, Elbow pain, right (ICD-10 - M25.521) Patient is also voicing complaints of progressing right elbow pain. I will refer the patient to orthopedics for further evaluation of her symptoms. She was encouraged to continue with physical therapy in the meantime. Jan, Chronic pain (ICD-10 - G89.29) Jan, Other Above note writ ten by Rohit Leon MA, [employer] Front Office Developer. Edited and approved by Dr. Ashkan Brown MD. [facility] Other 07-21-2022 Evaluation note* Encounter Date Diagnosis Assessment Notes Treatment Notes Treatment Clinical Notes May, Other low back pain (ICD-10 - M54.59) Patient appears to continue benefitting from prevous sacroiliac joint injections. We will continue to monitor and proceed with future treatment in the area as needed. May, Osteoarthritis of lumbosacral spine without myelopathy (ICD-10 - M47.817) Patients primary complaint today continues to be right sided low lumbar pain, consistent with the facet region upon exam. Based on recent positive results, as well as location of pain and exam findings, patient is a candidate for bilateral lumbar facet radiofrequency ablations which we will proceed with. Risks and benefits of procedure explained to patient; patient verbalizes understanding. Anatomy of spine discussed in detail with patient in regards to patients condition. May, Chronic pain (ICD-10 - G89.29) May, Other Above note writ ten by Rohit Leon MA, Credit Front Office Developer. Edited and approved by Dr. Ashkan Brown MD. [employer] Other 06-23-2022 Evaluation note* Encounter Date Diagnosis Assessment Notes Treatment Notes Treatment Clinical Notes Apr, Other low back pain (ICD-10 - M54.59) Patient appears to continue benefitting from prevous sacroiliac joint injections. We will continue to monitor and proceed with future treatment in the area as needed. Apr, Osteoarthritis of lumbosacral spine without myelopathy (ICD-10 - M47.817) Patients primary complaint today continues to be right sided low lumbar pain, consistent with the facet region upon exam. Based on recent positive results, as well as location of pain and exam findings, patient is a candidate for repeat bilateral lumbar facet medial branch blocks which we will proceed with. Risks and benefits of procedure explained to patient; patient verbalizes understanding. It was further explained should this provide significant short term relief we will proceed with a subsequent radiofrequency ablation. Anatomy of spine discussed in detail with patient in regards to patients condition. Apr, Chronic pain (ICD-10 - G89.29) Apr, Other Above note writ ten by Rohit Leon MA, Credit Front Office Developer. Edited and approved by Dr. Ashkan Brown MD. [place] [employer] Other 06-21-2022 History of Present illness Narrative* G Christofer Locke MD - 05/14/2022 3:45 PM EDT Diagnosis: Thyroid carcinoma, micropapillary. Prior treatment: Thyroidectomy and elected observation with no I-131 therapy. History of present illness: Doing well. Denies new problems. No dysphagia neck pain or otalgia. Intermittent hoarseness stable. Denies dyspnea. Labs: Results for NICHELLE DE LEON ( ) as of 05/03/2021 08:52 Ref. Range 04/20/2019 09:19 04/11/2020 09:33 04/26/2021 09:57 04/05/22 Thyroglobulin Latest Ref Range: 1.6 - 59.9 ng/mL 0.2 (L) <0.2 (L) 0.5 (L) 0.7 TG Antibody Screen Latest Ref Range: <14.4 IU/mL 14.2 15.8 (H) 12.2 9.9 Thyroglobulin Ab Latest Ref Range: <14.4 IU/mL 15.8 (H) 12.2 Ref. Range 10/14/2016 15:11 04/15/2017 14:11 Thyroglobulin Ab Latest Ref Range: <14.4 IU/mL 11.7 Thyroglobulin Latest Ref Range: 1.6 - 59.9 ng/mL 0.5 (L) <0.2 (L) Ref Range & Units 1 mo ago (04/05/22) 1 yr ago (04/26/21) 2 yr ago (04/11/20) 3 yr ago (04/20/19) 3 yr ago (10/13/18) 4 yr ago (04/22/18) 5 yr ago (04/15/17) Thyroglobulin 1.6 - 59.9 ng/mL 0.7 Low 0.5 Low CM <0.2 Low CM 0.2 Low CM <0.2 Low CM 0.2 Low CM <0.2 LowR, CM Component Ref Range & Units 1 mo ago 1 yr ago 2 yr ago 4 yr ago 5 yr ago 6 yr ago Thyroglobulin Ab <14.4 IU/mL 9.9 12.2 15.8 High 93.8 High 11.7 12.0 Review of Systems: PAIN ASSESSMENT: Negative for pain, history of chronic pain, or current treatment for a chronic pain condition. GENERAL: No weight loss, malaise or fevers. RESPIRATORY: Negative for cough, hemoptysis, wheezing, COPD, dyspnea or shortness of breath CARDIOVASCULAR: Negative for chest pain, leg swelling, hypertension, CHF or palpitations MUSCULOSKELETAL: Negative for joint pain or swelling, back pain or muscle pain SKIN: Negative for lesions, rash, and itching. NEURO: No history of headaches, syncope, paralysis, seizures or tremors The remainder of the review of systems is negative. PHYSICAL EXAM: 05/14/22 1547 BP: 122/50 Pulse: 84 Resp: 18 Temp: 36.5 C (97.7 F) SpO2: 99% Weight: 88.5 kg (195 lb) KPS:100 General Appearance: Well appearing, alert, in no acute distress, well-hydrated, well nourished.. Skin: Skin color, texture, turgor normal, no suspicious rashes or lesions. Neck: Supple, no adenopathy or masses Neurologic: Gait normal. Cranial nerves II through XII intact. No focal deficits. Lymph Nodes: No cervical lymphadenopathy and No supraclavicular lymphadenopathy. IMPRESSION: Thyroid carcinoma with prior thyroidectomy and no I-131 ablative treatment. Overall continues to do well. Thyroglobulin measurable but low with a decreasing antithyroglobulin antibody level over the last 3 to 4 years. Recommend repeat thyroglobulin and follow-up in 1 year. Kristi Locke MD [facility] Miscellaneous Notes* Telephone Encounter - Quoc Brian LPN - 05/07/2022 1:30 PM EDT Patient had lab work done March 2022, her follow up with Dr. Locke was rescheduled. Quoc Brian LPN * Telephone Encounter - Quoc Brian LPN - 05/07/2022 1:21 PM EDT Please sign pended orders for Thyroglobulin blood and antibody levels as previous orders . Quoc Brian LPN [facility]* Encounter Date Diagnosis Assessment Notes Treatment Notes Treatment Clinical Notes March, Other low back pain (ICD-10 - M54.59) Patient appears to continue benefitting from prevous sacroiliac joint injections. We will continue to monitor and proceed with future treatment in the area as needed. March, Osteoarthritis of lumbosacral spine without myelopathy (ICD-10 - M47.817) Patients primary complaint today is increasing right sided low lumbar pain, consistent with the facet region upon exam. She notes having what sounds like possible facet joint injections by a neurologist, it is not clear exactly what was done. I do think this would be appropriate to targe as a source of her pain, patient is a candidate for right lumbar facet medial branch blocks which we will proceed with. Risks and benefits of procedure explained to patient; patient verbalizes understanding. It was further explained should this provide significant short term relief we will proceed with a repeat block and subsequent radiofrequency ablation. Anatomy of spine discussed in detail with patient in regards to patients condition. March, Chronic pain (ICD-10 - G89.29) March, Other Above note writ ten by Rohit Leon CMA, Credit Front Office Developer. Edited and approved by Dr. Ashkan Brown MD. [employer] Other 04-18-2022 Evaluation note* Encounter Date Diagnosis Assessment Notes Treatment Notes Treatment Clinical Notes Feb, Other low back pain (ICD-10 - M54.59) Patient voices minimal complaints of any left sided pain at this time. Based on past results with sacroiliac joint injections and current locaion of pain we will proceed with a right sacroiliac joint injection. Risks and benefits of procedure explained to patient; patient verbalizes understanding. Anatomy of spine discussed in detail with patient in regards to patients condition. She will continue on her current regimen of Lyrica and Baclofen, managed by her PCP. We will follow up with the patient in three months, sooner if needed. Anatomy of spine discussed in detail with patient in regards to patients condition. Overall, patient believes their pain is reasonably well controlled and she is in agreement with our treatment plan. Feb, Other spondylosis, sacral and sacrococcygeal region (ICD-10 - M47.898) Feb, Trochanteric bursitis, right hip (ICD-10 - M70.61) Feb, Trochanteric bursitis, left hip (ICD-10 - M70.62) Feb, Chronic pain (ICD-10 - G89.29) Feb, Other Above note written by Caroline Vidales MA, Credit Front Office Developer. Edited and approved by Dr. Ashkan Brown MD. [employer] Other 01-24-2022 Evaluation note* Encounter Date Diagnosis Assessment Notes Treatment Notes Treatment Clinical Notes Nov, Other low back pain (ICD-10 - M54.59) Patient voices minimal complaints of pain at this time. She attributes this to recent sacroiliac joint injections. We will continue to monitor and proceed with future alternative treatment options as needed. She will continue on her current regimen of Lyrica and Baclofen, managed by her PCP. We will follow up with the patient in three months, sooner if needed. Anatomy of spine discussed in detail with patient in regards to patients condition. Overall, patient believes their pain is reasonably well controlled and she is in agreement with our treatment plan. Nov, Other spondylosis, sacral and sacrococcygeal region (ICD-10 - M47.898) Nov, Trochanteric bursitis, right hip (ICD-10 - M70.61) Patient voices minimal complaints of pain at this time. She attributes this to recent trochanteric bursa injections. We will continue to monitor and proceed with future alternative treatment options as needed. Nov, Trochanteric bursitis, left hip (ICD-10 - M70.62) Nov, Chronic pain (ICD-10 - G89.29) Nov, Other Above note writ ten by Rohit Loen MA, Credit Front Office Developer. Edited and approved by Dr. Ashkan Brown MD. [employer] Other 12-14-2021 Evaluation note* Encounter Date Diagnosis Assessment Notes Treatment Notes Treatment Clinical Notes Oct, Chronic pain (ICD-10 - G89.29) Oct, Other low back pain (ICD-10 - M54.59) Patient's main complaint is her low back pain symptoms radiating into the posterior and lateral aspect of her lower extremities. I discussed his MRI findings of L4-5 marked central canal and right foramen narrowing predominantly due to degenerative facet arthropathy, L5-S1 moderate left foramen narrowing predominantly due to degenerative facet arthropathy. Despite these findings of stenosis, her pain symptoms appear to be most consistent with the sacroiliac joints as well as bilateral trochanteric bursitits. We will plan to proceed with sacroiliac joint injections as well as bilatreal tochanteric bursa injections. Risks and benefits of procedure explained to patient; patient verbalizes understanding. Anatomy of spine discussed in detail with patient in regards to patients condition. Oct, Other spondylosis, sacral and sacrococcygeal region (ICD-10 - M47.898) Oct, Trochanteric bursitis, right hip (ICD-10 - M70.61) Oct, Trochanteric bursitis, left hip (ICD-10 - M70.62) Oct, Other Above note writ ten by Bam Luna LPN, Credit Front Office Developer. Edited and approved by Dr. Ashkan Brown MD. Medical decision making shows a new problem to me with further workup planned or suggested with the potential for extensive treatment options that were considered with the most applicable given this patient's situation as noted above. Treatment options considered include a combination of physical therapy approaches, pharmacologic management, and interventional procedures. Those most applicable to the patient were discussed at this time. Risk of complications and/or morbidity and mortality is high given that acute and chronic pain poses a threat to life and bodily function if undertreated, poorly treated or with failure to maintain adequate treatment and timely followup. Given the serious and fluctuating nature of pain with extensive consideration for whenever pain changes, there always remains the possibility of prolonged functional impairment requiring constant patient reassessment and high-level medical decision making. The amount and complexity of data reviewed is high given that patient labs, radiology reports, and other test were obtained, reviewed and summarized as applicable from the physician portal and/or outside medical records. Pertinent positive and negative findings were considered in medical decision-making. [employer] Other 12-07-2021 Evaluation note* Encounter Date Diagnosis Assessment Notes Treatment Notes Treatment Clinical Notes Oct, Inflammation of both sacroiliac joints (ICD-10 - M46.1) Oct, Greater trochanteric bursitis of right hip (ICD-10 - M70.61) Oct, Cervical myelopathy (ICD-10 - G95.9) This patient has a number of comorbidities to include chronic low back pain, trochanteric bursitis, a cervical myelopathy and bilateral vocal cord paralysis. All these are significant problems her back pain has been treated by neurology with injections but this is not comprehensive pain management. I think it is best the patient see a formal pain management physician I would recommend sacroiliac and trochanteric injections. I think this will help her to some degree I have independently reviewed the MRI of the lumbar spine and the report there is right foraminal narrowing which is asymptomatic. The patient's canal is overall normal her alignment is good she does not have a surgical entity with regard to her back. Discussed this with her in detail she understands and agrees Oct, Bilateral vocal cord paralysis (ICD-10 - J38.02) [employer] Other evaluation note* Diagnosis Encounter for gynecological examination without abnormal finding Routine gynecological examination documented in this encounter [employer] Phone: evaluation note* Diagnosis History of thyroid cancer- Primary Personal history of malignant neoplasm of thyroid documented in this encounter [facility] note* Diagnosis History of thyroid cancer- Primary Personal history of malignant neoplasm of thyroid documented in this encounter [facility] noteNo [employer] Other Evaluation note* Diagnosis Encounter for gynecological examination without abnormal finding Routine gynecological examination documented in this encounter [facility] [employer] Work Phone: evaluation noteNo assessment information available [facility] Work Phone: Evaluation note* Diagnosis History of thyroid cancer- Primary Personal history of malignant neoplasm of thyroid [facility] Diagnosis History of thyroid cancer- Primary Personal history of malignant neoplasm of thyroid [facility] Diagnosis Women's annual routine gynecological examination documented in this encounter [facility]* Diagnosis Onset Date Resolution Status Cervical myelopathy acute History of fusion of cervical spine acute [facility] Work Phone: Evaluation note* Diagnosis History of thyroid cancer- Primary Personal history of malignant neoplasm of thyroid [facility] Diagnosis S/P arthroscopy of right shoulder- Primary Acute pain of right shoulder Biceps tendonitis on right documented in this encounter [facility]* Diagnosis S/P arthroscopy of right shoulder- Primary Acute pain of right shoulder Biceps tendonitis on right documented in this encounter [facility]* Diagnosis Hypertension, unspecified type (CMS/HCC) Intractable chronic migraine without aura and without status migrainosus (CMS/HCC) documented in this encounter [facility] HealthcareEvaluation note* Diagnosis S/P arthroscopy of right shoulder- Primary Acute pain of right shoulder Biceps tendonitis on right Euthyroid sick syndrome Postsurgical hypothyroidism (CMS/HCC) Postsurgical hypothyroidism Chronic fatigue Other malaise and fatigue Non morbid obesity due to excess calories documented [facility] encounter [facility]* Diagnosis S/P arthroscopy of right shoulder- Primary Acute pain of right shoulder Biceps tendonitis on right S/P total knee replacement, left S/P total knee replacement, right Arthritis of left knee Arthritis of right knee Euthyroid sick syndrome Postsurgical hypothyroidism (CMS/HCC) Postsurgical hypothyroidism Chronic fatigue Other malaise and fatigue Non morbid obesity due to excess calories documented [facility]* Diagnosis S/P total knee replacement, left S/P total knee replacement, right Arthritis of left knee Arthritis of right knee Euthyroid sick syndrome Postsurgical hypothyroidism (CMS/HCC) Postsurgical hypothyroidism Chronic fatigue Other malaise and fatigue Non morbid obesity due to excess calories documented in this encounter [facility] Healthcare[facility] note* Diagnosis Acute pain of left shoulder- Primary S/P arthroscopy of right shoulder documented in this encounter [facility] Healthcare[facility] note* Diagnosis Postsurgical hypothyroidism (CMS/HCC)- Primary Postsurgical hypothyroidism Central hypothyroidism (CMS/HCC) Unspecified hypothyroidism Euthyroid sick syndrome Chronic fatigue Other malaise and fatigue Non morbid obesity due to excess calories documented in this encounter [facility] HealthcareHistory general Narrative - Reported* Type Description Date Medical History Hypothroidism Medical History Spinal Cord Injury, neuropathy Medical History GERD Medical History Chronic Inflammation/Pain Medical History Spasms, nerves Surgical History Thyroidectomy Surgical History ACF, C5/6 Surgical History Tracheostomy, cordotomy Surgical History Carpal Tunnel Surgery, bilatera l Surgical History Endometrial Lasar Ablation Hospitalization History See above [employer] Other Hospital Discharge instructionsAmbulatory Orders* Referral to Orthopedic Surgery Location: [facility] Work Phone: Reason for visit Narrative* Consultation (Routine) - Authorized Specialty Diagnoses / Procedures Referred By Verna loza Referred To Contact Physical Therapy Diagnoses S/P arthroscopy of right shoulder Procedures MD OFFICE/OUTPATIENT [facility] 60 MINUTES Jourdan Herr PA [address] [employer] [address] [address] Alicia Cisneros, JADEN Referral ID Status Reason Start Date Expiration Date Visits Requested Visits Authorized [id number] Authorized Consult and Treat 08/05/2024 02/01/2025 60 [facility] Narrative* Consultation (Routine) - Closed Specialty Diagnoses / Procedures Referred By Verna loza Referred To Contact Physical Therapy Diagnoses S/P arthroscopy of right shoulder Procedures MD OFFICE/OUTPATIENT [facility] 60 MINUTES Jourdan Herr PA [address] [employer] [address] [address] Alicia Cisneros, JADEN Referral ID Status Reason Start Date Expiration Date V isits Requested Visits Authorized [id number] Closed Consult and Treat 08/05/2024 02/01/2025 60 58 [facility] Advance Directives Documents on File Type Date Recorded Patient Ad Clerk Expl anation ACP-Advance Directive ACP-Power of Atomic Spectroscopist Advance Directive Response Recorded Date/ Time Advance Directives No March 12, 023 3:54pm Advance Directive Response Recorded Date/ Time Advance Directives No March 12 023 2:54pm Documents on File Type Date Recorded Patient Ad Clerk Expl anation Advance Directives and Living Will 08/23/2019 2019-08-23 Advance Directives Documents on File Type Date Recorded Patient Ad Clerk Expl anation Advance Directives and Living Will 08/23/2019 2019-08-23 Advance Directives Summary Purpose Family History No Family History Records FoundNo Family History Records FoundNo Family History Records FoundNo Family History Records FoundNo Family History Records FoundNo Family History Records FoundNo Family History Records Found Reason for Referral Reason *FU 06/30 tremors of den UE & hands please evaluate and treat Diagnosis 1 Tremors of nervous s ystem (R25.1) Referral Organization [facility] [employer] Referring Provider First Name Ashkan Referring Provider Last Name Kevin Referring Provider Specialty Pain Medici ne Referred Organization [facility] Referred Provider Korina Ribeiro Referred Address ,[place], [place],[address] Referred Provider Specialty Neurology Referral Priority Routine General Notes Marily Villar 10:36:28 AM >received today, [place] can you confirm which one Dr Brown would like... Dr. Korina Ribeiro or GONZÁLEZ? Dr. Ribeiro is with [facility] now. Rohit Leon 06/23/2023 10:43:27 AM > MARGARET AT [facility] PLEASE THANK YOU Marily Villar 06/23/2023 10:59:40 AM >ok updated the referral and sending at this time, their office will contact patient for scheduling. 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) Referral Organization [facility] [employer] Referring Provider First Name Naya Referring Provider Last Name Melissa Referring Provider Specialty Hand Surger y Referred Organization [facility] Referred Address [address] [place],[address] Referred Provider Specialty Neurology Referral Priority Routine General Notes Marily Villar 09:40:55 AM >RECEIVED TODAY BUT WILL HOLD REFERRAL UNTIL DR SEE'S OFFICE NOTE IS LOCKED FROM TODAYS VISIT Marily Villar 03/19/2023 08:24:51 AM >not locked yet Marily Villar 03/20/2023 08:54:44 AM >not locked yet Marily Villar 03/21/2023 09:15:13 AM >not locked yet Reason 03/18/23 at 9:00 am right elbow pain since october, currently in PT with some relief. Diagnosis 1 Elbow pain, right (M 25.521) Referral Organization [facility] Referring Provider First Name Ashkan Referring Provider Last Name Kevin Referring Provider Specialty Pain Medici ne Referred Organization [facility] Referred Provider Naya See Referred Address [address] [place],[address] Referred Provider Specialty Hand Surgery Referral Priority Routine General Notes Ryanne Sahni 10:19:02 AM > when pt checked out i scheduled her for 03/18/23 at 9:00 am Reason 11/06/21 @ 2:30pm Evaluate and Treat Diagnosis 1 Inflammation of both sacroiliac joints (M46.1) Referral Organization [facility] Referring Provider First Name Mo Referring Provider Last Name Belinda Referring Provider Specialty Neurologica l Surgery Referred Organization [facility] Referred Provider Ashkan Brown Referred Address [address],[place],[address] Referred Provider Specialty Pain Medicin e Referral Priority Routine Referral Appointment Date 2021-11-06 General Notes Stephany Ni 08:47:48 AM >Received today and sent Stephany Richardson 11/05/2021 07:02:24 AM >Patient has been scheduled Chief Complaint and Reason for Visit Chief Complaint M25.551 Chief Complaint M25.551 M25.521 Chief Complaint g89.29 Chief Complaint Follow Up After Righ t Troch Bursa & Hip m54.2 Chief Complaint m54.2 m62.838 m25.511 g89.29 r20.0 m54.12 Chief Complaint m54.2 m62.838 m25.511 g89.29 r20.0 m54.12 f/u 8 week Reason for Visit Cervical myelopathy History of fusion of cervical spine Additional Source Comments INFORMATION SOURCE (unrecogn ized section and content) DATE CREATED AUTHOR 02/14/2022 [facility] DATE CREATED AUTHOR AUTHOR'S ORGANIZ ATION 11/02/2022 [facility] DATE CREATED AUTHOR AUTHOR'S ORGANIZ ATION 03/17/2024 [facility] DATE CREATED AUTHOR AUTHOR'S ORGANIZ ATION 05/19/2024 [facility] DATE CREATED AUTHOR AUTHOR'S ORGANIZ ATION 07/11/2024 [facility] DATE CREATED AUTHOR AUTHOR'S ORGANIZ ATION 08/03/2024 [facility] DATE CREATED AUTHOR AUTHOR'S ORGANIZ ATION 09/17/2024 [facility] EPIC Source Comments (unrecognize d section and content) In the event this informatio n is protected by the Federal Confidentiality of Alcohol and Drug Abuse Patient Records regulations: The Federal rules restrict any use of the information to criminally investigate or prosecute any alcohol or drug abuse patient.[facility] the event this information is protected by the Federal Confidentiality of Alcohol and Drug Abuse Patient Records regulations: The Federal rules restrict any use of the information to criminally investigate or prosecute any alcohol or drug abuse patient.[facility] the event this information is protected by the Federal Confidentiality of Alcohol and Drug Abuse Patient Records regulations: The Federal rules restrict any use of the information to criminally investigate or prosecute any alcohol or drug abuse patient.[facility] HospitalIn the event this information is protected by the Federal Confidentiality of Alcohol and Drug Abuse Patient Records regulations: The Federal rules restrict any use of the information to criminally investigate or prosecute any alcohol or drug abuse patient.[facility] the event this information is protected by the Federal Confidentiality of Alcohol and Drug Abuse Patient Records regulations: The Federal rules restrict any use of the information to criminally investigate or prosecute any alcohol or drug abuse patient.[facility] the event this information is protected by the Federal Confidentiality of Alcohol and Drug Abuse Patient Records regulations: The Federal rules restrict any use of the information to criminally investigate or prosecute any alcohol or drug abuse patient.[facility] Reason for Visit (unrecogniz ed section and content) Reason Comments Orders Reason Comments Thyroid Cancer Reason Comments Lab Orders Reason Comments Thyroid Cancer Follow up Reason Comments Med Change Request Reason Comments Follow-up Reason Comments Pain Care Teams (unrecognized sec tion and content) Centrifugal Station Operator Relationship Specialty Start Date End Date Gurmeet Sahu MD [address] [place] [address] (Fax) PCP - [facility] 10/22/11 Centrifugal Station Operator Relationship Specialty Start Date End Date Gurmeet Sahu MD [address] [facility] [address] (Fax) PCP - [facility] 10/22/11 Centrifugal Station Operator Relationship Specialty Start Date End Date Gurmeet Sahu MD PCP - General 06/18/17 Team Status: Active Member Role Status Dates Gurmeet Sahu MD Primary Care Provider Active Team Status: Inactive Member Role Status Dates Gurmeet Sahu MD Primary Care Provider Active Ashkan Brown MD Attending Provider Active Team Status: Inactive Member Role Status Dates Gurmeet Sahu MD Primary Care Provider Active Naya See MD Attending Provider Active Centrifugal Station Operator Relationship Specialty Start Date End Date Gurmeet Sahu MD [address] [place] [address] (Fax) PCP - [facility] Family Medicine 10/22/11 Centrifugal Station Operator Relationship Specialty Start Date End Date Gurmeet Sahu MD PCP - General 06/18/17 Team Status: Inactive Member Role Status Dates Ashkan Brown MD Attending Provider Active Sta rt: October 29, 2023 End: October 29, 2023 Team Status: Inactive Member Role Status Dates Gurmeet Sahu MD Primary Care Provider Active Start: January 01, 2024 End: January 01, 2024 BIGG BlackwoodC Attending Provider Active Start: January 01, 2024 End: January 01, 2024 Team Status: Inactive Member Role Status Dates Gurmeet Sahu MD Primary Care Provider Active Start: February 20, 2024 End: February 20, 2024 Yenifer Farooq APRN MAILER APPRENTICE-C Attending Provider Active Start: February 19 End: February 20, 2024 Team Status: Inactive Member Role Status Dates Gurmeet Sahu MD Primary Care Provider Active Start: March 02, 2024 End: March 02, 2024 Mo Trevino MD Attending Provider Active Star t: March 02, 2024 End: March 02, 2024 Centrifugal Station Operator Relationship Specialty Start Date End Date Gurmeet Sahu MD [address] [place] [address] (Fax) PCP - General Family Medicine 10/22/11 Centrifugal Station Operator Relationship Specialty Start Date End Date Gurmeet Sahu MD [address] [place] [address] (Fax) PCP - General Family Medicine 10/22/11 Centrifugal Station Operator Relationship Specialty Start Date End Date Gurmeet Sahu MD [address] [place] [address] (Fax) PCP - [facility] 02/22/21 Gurmeet Sahu MD [address] [place] [address] PCP - General Family Medicine 05/22/23 Marcellus Cid MD 27 [facility] [address] [place] [address] Referring Physician Gynecology 02/10/24 Milton Garcia DO [address] [facility] 150 [place] [address] Referring Physician Orthopaedic Surgery 02/10/24 Yenifer Farooq, JOSE DE JESUS [address] [facility] [address] [place] [address] Nurse Practitioner Neurology 02/10/24 Centrifugal Station Operator Relationship Specialty Start Date End Date Gurmeet Sahu MD [address] [place] [address] PCP - [facility] 02/22/21 Gurmeet Sahu MD [address] [place] [place] [address] PCP - General Family Medicine 05/22/23 Marcellus Cid MD 27 [facility] [address] [place], [place] [address] Referring Physician Gynecology 02/10/24 Milton Garcia DO 112 [facility] [address] [place] [address] Referring Physician Orthopaedic Surgery 02/10/24 Yenifer Farooq NP 112 [facility] [address] [place] [address] Nurse Practitioner Neurology 02/10/24 Centrifugal Station Operator Relationship Specialty Start Date End Date Gurmeet Sahu MD [address] [place] [address] PCP - [facility] 02/22/21 Gurmeet Sahu MD [address] [place] [address] PCP - General Family Medicine 05/22/23 Marcellus Cid MD 27 [facility] [address] [place], [place] [id number] Referring Physician Gynecology 02/10/24 Milton Garcia DO [address] [facility] [address] [place] [address] Referring Physician Orthopaedic Surgery 02/10/24 Yenifer Faroqo, MAILER APPRENTICE [address] [facility] [address] [place] [address] Nurse Practitioner Neurology 02/10/24 Centrifugal Station Operator Relationship Specialty Start Date End Date Gurmeet Sahu MD [address] [place] [address] (Fax) PCP - [facility] 02/22/21 Gurmeet Sahu MD [address] [facility] [address] PCP - General Family Medicine 05/22/23 Marcellus Cid MD 27 [facility] [address] [place] [address] Referring Physician Gynecology 02/10/24 Milton Garcia DO [address] [facility] [address] [place] [address] Referring Physician Orthopaedic Surgery 02/10/24 Yenifer Farooq, MAILER APPRENTICE [address] [facility] [address] [place] [address] Nurse Practitioner Neurology 02/10/24 Centrifugal Station Operator Relationship Specialty Start Date End Date Gurmeet Sahu MD [address] [place] [address] (Fax) PCP - [facility] 02/22/21 Gurmeet Sahu MD [address] [place] [address] PCP - General Family Medicine 05/22/23 Gurmeet Sahu MD [address] [place] [address] (Fax) PCP - [facility] 08/24/24 Marcellus Cid MD 27 [facility] [address] [place] [address] Referring Physician Gynecology 02/10/24 Milton Garcia DO [address] [facility] [address] [place] [address] Referring Physician Orthopaedic Surgery 02/10/24 Yenifer Farooq, JOSE DE JESUS [address] [facility] [address] [place] [address] Nurse Practitioner Neurology 02/10/24 Centrifugal Station Operator Relationship Specialty Start Date End Date Gurmeet Sahu MD [address] [facility] [place] [address] (Fax) PCP - [facility] 02/22/21 Gurmeet Sahu MD [address] [place] [address] PCP - General Family Medicine 05/22/23 Gurmeet Sahu MD [address] [facility] [place] [address] PCP - [facility] 08/24/24 Marcellus Cid MD [address] [facility] [address] [place] [address] Referring Physician Gynecology 02/10/24 Milton Garcia DO [address] [facility] [address] [place] [address] Referring Physician Orthopaedic Surgery 02/10/24 Yenifer Farooq, MAILER APPRENTICE [address] [facility] [address] [place] [address] Nurse Practitioner Neurology 02/10/24 Centrifugal Station Operator Relationship Specialty Start Date End Date Gurmeet Sahu MD [address] [place] [address] PCP - [facility] 02/22/21 Gurmeet Sahu MD [address] [place] [place] [address] PCP - General Family Medicine 05/22/23 Gurmeet Sahu MD [address] [place] [address] (Fax) PCP - [facility] 08/24/24 Marcellus Cid MD [address] [facility] [address] [facility] [place] [address] Referring Physician Gynecology 02/10/24 Milton Garcia DO [address] [facility] [address] [place] [address] Referring Physician Orthopaedic Surgery 02/10/24 Yenifer Farooq, MAILER APPRENTICE [address] [facility] [address] [place] [address] Nurse Practitioner Neurology 02/10/24 Centrifugal Station Operator Relationship Specialty Start Date End Date Gurmeet Sahu MD [address] [place] [address] (Fax) PCP - [facility] 02/22/21 Gurmeet Sahu MD [address] [place] [address] PCP - General Family Medicine 05/22/23 Gurmeet Sahu MD [address] [place] [address] (Fax) PCP - [facility] 08/24/24 Marcellus Cid MD [address] [place] [address] [address] [place] [address] Referring Physician Gynecology 02/10/24 Milton Garcia DO [address] [facility] [address] [place] [address] Referring Physician Orthopaedic Surgery 02/10/24 Yenifer Farooq, MAILER APPRENTICE [address] [address] Nurse Practitioner Neurology 02/10/24 Centrifugal Station Operator Relationship Specialty Start Date End Date Gurmeet Sahu MD [address] [place] [address] (Fax) PCP - [facility] 02/22/21 Gurmeet Sahu MD [address] [place] [address] PCP - General Family Medicine 05/22/23 Gurmeet Sahu MD [address] [facility] [place] [address] (Fax) PCP - [facility] 08/24/24 Marcellus Cid MD [address] [facility] [address] [place] [address] Referring Physician Gynecology 02/10/24 Milton Garcia DO [address] [address] Referring Physician Orthopaedic Surgery 02/10/24 Yenifer Farooq NP [address] [address] Nurse Practitioner Neurology 02/10/24 Centrifugal Station Operator Relationship Specialty Start Date End Date Gurmeet Sahu MD [address] [place] [address] (Fax) PCP - [facility] 02/22/21 Gurmeet Sahu MD [address] [place] [place] [address] PCP - General Family Medicine 05/22/23 Gurmeet Sahu MD [address] [facility] [place] [address] (Fax) PCP - [facility] 08/24/24 Marcellus Cid MD [address] [facility] [address] [place] [address] Referring Physician Gynecology 02/10/24 Milton Garcia DO [address] [facility] [address] [place] [address] Referring Physician Orthopaedic Surgery 02/10/24 Yenifer Farooq, MAILER APPRENTICE [address] [facility] [address] [place] [address] Nurse Practitioner Neurology 02/10/24 Centrifugal Station Operator Relationship Specialty Start Date End Date Gurmeet Sahu MD [address] [place] [address] PCP - [facility] 02/22/21 Gurmeet Sahu MD [address] [place] [address] PCP - General Family Medicine 05/22/23 Gurmeet Sahu MD [address] [place] [address] (Fax) PCP - [facility] 08/24/24 Marcellus Cid MD [address] [address] Referring Physician Gynecology 02/10/24 Milton Garcia DO [address] [facility] [address] [place] [address] Referring Physician Orthopaedic Surgery 02/10/24 Yenifer Farooq, MAILER APPRENTICE [address] [facility] [address] [place] [address] Nurse Practitioner Neurology 02/10/24 Centrifugal Station Operator Relationship Specialty Start Date End Date Gurmeet Sahu MD [address] [facility] [place] [address] (Fax) PCP - [facility] 02/22/21 Gurmeet Sahu MD [address] [place] [address] PCP - General Family Medicine 05/22/23 Gurmeet Sahu MD [address] [place] [address] (Fax) PCP - [facility] 08/24/24 Marcellus Cid MD [address] [place] [address] 202 [place] [address] Referring Physician Gynecology 02/10/24 Milton Garcia DO [address] [facility] [address] [place] [address] Referring Physician Orthopaedic Surgery 02/10/24 Yenifer Farooq NP [address] [facility] [address] [place] [address] Nurse Practitioner Neurology 02/10/24 Centrifugal Station Operator Relationship Specialty Start Date End Date Gurmeet Sahu MD [address] [place] [address] (Fax) PCP - [facility] 02/22/21 Gurmeet Sahu MD [address] [place] [address] (Fax) PCP - General Family Medicine 05/22/23 Gurmeet Sahu MD [address] [place] [address] (Fax) PCP - [facility] 08/24/24 Marcellus Cid MD 27 [facility] [address] [place], [place] [address] Referring Physician Gynecology 02/10/24 Milton Garcia DO [address] [facility] [address] [place] [address] Referring Physician Orthopaedic Surgery 02/10/24 Yenifer Farooq NP [address] [facility] [address] [place] [address] Nurse Practitioner Neurology 02/10/24 Goals (unrecognized section and content) Goals may be documented in a n alternate section FOR RECORDS PERTAINING TO PATIENTS WHO ARE OR HAVE BEEN ENROLLED IN A CHEMICAL DEPENDENCY/SUBSTANCEABUSE PROGRAM, SOME INFORMATION MAY BE OMITTED. This clinical summary was aggregated from multiple sources. Caution should be exercised in using it in the provision of clinical care. This summary normalizes information from multiple sources, and as a consequence, information in this document may materially change the coding, format and clinical context of patient data. In addition, data may be omitted in some cases. CLINICAL DECISIONS SHOULD BE BASED ON THE PRIMARY CLINICAL RECORDS. [employer] [facility]. provides no warranty or guarantee of the accuracy or completeness of information in this document.
== END 2024-09-30 10:59 | disposition home or self-care (01) ==
LOC: MAMMO 10:58
PROVIDERS: PCP Family Medicine; Visit Provider Obstetrics & Gynecology
DX: Z12.31 Encounter for screening mammogram for malignant neoplasm of breast (principal)
CPT/HCPCS: 77063; 77067